=== PATIENT | male | born 1960 | race Two or more races ===

== ENCOUNTER 2023-08-18 04:33 | Inpatient (IN) | payer OTHER, MEDICAID ==
[~2023-08-18] VITALS: Ht 165.1 cm; Wt 65.7 kg
[2023-08-18] VITALS (43 sets, daily range): BP systolic 60–136; BP diastolic 21–66; PULSE 81–145; RESP 12–34; TEMP 97.4–100.4; O2SAT 85–100
[2023-08-18] MEDS ORDERED: DEXTROSE 10% 250 ML IV ONE (04:41)
[2023-08-18] MEDS ORDERED: ROCURONIUM 10MG/ML 10ML VIAL IV ONE (05:00)
[2023-08-18] MEDS ORDERED: ETOMIDATE (2MG/ML) 20ML VIAL IV ONE (05:00)
[2023-08-18] MEDS ORDERED: MIDAZOLAM DRIP 50 mg/50mL 50 ML IV ONE (05:10)
[2023-08-18] MEDS ORDERED: DEXTROSE 10% 1,000 ML IV ONE ×2 (05:13→05:45)
[2023-08-18] MEDS ORDERED: NOREPINEPHRINE 8 MG/250ML KIT 250 ML IV ONE ×2 (05:18→10:04)
[2023-08-18] MEDS: MIDAZOLAM DRIP 50 mg/50mL 50 ML IV SCH (05:20)
[2023-08-18] MEDS: NOREPINEPHRINE 8 MG/250ML KIT 250 ML IV SCH ×2 (05:55→06:00)
[2023-08-18] MEDS ORDERED: DOBUTamine 1000MCG/ML 250 ML IV ONE ×2 (05:59→10:03)
[2023-08-18] MEDS ORDERED: VASOPRESSIN 20 UNIT/ML ONE (05:59)
[2023-08-18] MEDS ORDERED: VASOPRESSIN 20 UNITS in SODIUM CHL 0.9% 99 ML IV SCH (06:00)
[2023-08-18] MEDS: VASOPRESSIN 20 UNITS in SODIUM CHL 0.9% 99 ML IV SCH ×2 (06:12→14:39)
[2023-08-18 06:29] LABS: Basophils # (auto) 0.1 10 ^3/uL (0-0.2); Basophils % (auto) 1.1 % (0.0-2.0); Eosinophils # (auto) 0.1 10 ^3/uL (0-0.8); Lymphocytes # (auto) 1.2 10 ^3/uL (0.4-5.4); Nucleated Red Blood Cells % 0.1 %
[2023-08-18] MEDS ORDERED: OCTREOTIDE ACETATE 100 MCG in SODIUM CHL 0.9% 50 ML IV ONE (06:30)
[2023-08-18] MEDS ORDERED: DOBUTamine 1000MCG/ML 250 ML IV SCH (06:30)
[2023-08-18] MEDS ORDERED: VANCOMYCIN 1GM/200ML 250 ML IV ONE (06:30)
[2023-08-18] MEDS ORDERED: PIPERACILLIN-TAZOB 3.375GM 100 ML IV ONE (06:30)
[2023-08-18] MEDS ORDERED: PANTOPRAZOLE 80 MG in SODIUM CHL 0.9% 100 ML IV ONE (06:30)
[2023-08-18] MEDS ORDERED: PANTOPRAZOLE 40mg/50ML NS AE 50 ML IV ONE (06:30)
[2023-08-18 06:32] LABS: Eosinophils % (auto) 0.9 % (0.0-7.0); Hematocrit 20.2 % (41.0-53.0); Mean Corpuscular Hemoglobin 28.3 pg (28.0-32.0); Mean Corpuscular Hgb Conc. 31.6 g/dL (32.0-36.0); Mean Corpuscular Volume 89.6 fL (80.0-100.0); Monocytes # (auto) 0.8 10 ^3/uL (0-1.3); Monocytes % (auto) 8.9 % (0.0-12.0); Neutrophils # (auto) 6.7 10 ^3/uL (1.6-8.6); Neutrophils % (auto) 75.1 % (37.0-80.0); Red Blood Cells 2.25 10^6/uL (4.5-5.90); White Blood Cell 8.9 10^3/uL (4.4-10.8)
[2023-08-18 06:43] LABS: Alanine Aminotransferase 17 U/L (7-40); Albumin 3.2 g/dL (3.2-4.8); Alkaline Phosphatase 224 U/L (46-116); Anion Gap 12 (5-15); Aspartate Aminotransferase 37 U/L (13-40); BUN/Creatinine Ratio 8.3 (10.0-20.0); Blood Urea Nitrogen 46 mg/dL (9-23); Calcium 7.5 mg/dL (8.5-10.1); Carbon Dioxide 23 mmol/L (20-30); Chloride 100 mmol/L (98-107); Glucose 88 mg/dL (74-106); Potassium 4.7 mmol/L (3.5-5.1); Sodium 135 mmol/L (136-145)
[2023-08-18 06:44] LABS: Total Protein 5.7 g/dL (5.7-8.2)
[2023-08-18] MEDS ORDERED: PHENYLEPHRINE IV 250 ML IV ONE (06:54)
[2023-08-18] MEDS: fentaNYL Drip 2500mCg/250mlNS 250 ML IV SCH (07:00)
[2023-08-18] MEDS ORDERED: PHENYLEPHRINE IV 250 ML IV SCH (07:00)
[2023-08-18 07:03] LABS: Blood Alcohol < 3.0 mg/dL (<10)
[2023-08-18 07:04] LABS: Red Cell Distribution Width 25.3 % (11.8-14.3)
[2023-08-18 07:06] LABS: Hemoglobin 6.4 g/dL (13.5-17.5)
[2023-08-18 07:16] LABS: INR 1.31 (0.9-1.15); Prothrombin Time 13.5 sec (9.3-11.8)
[2023-08-18 07:20] LABS: Lipase 22 U/L (12-53); Magnesium 2.1 mg/dL (1.6-2.6)
[2023-08-18 08:01] LABS: Lactic Acid w/Reflex 3.1 mmol/L (0.4-2.0)
[2023-08-18 08:11] LABS: Erythrocyte Sedimentation Rate 62 mm/hr (0-20)
[2023-08-18] MEDS ORDERED: ACETAMINOPHEN 325 MG TAB PO PRN (08:45)
[2023-08-18] MEDS ORDERED: VANCOMYCIN PER PHARMACY 0 MG IV SCH (08:45)
[2023-08-18] MEDS ORDERED: SODIUM CHLORIDE 0.9% 1,000 ML IV SCH (08:45)
[2023-08-18 09:29] LABS: COVID19 ANTIGEN SOFIA FIA NEGATIVE (NEGATIVE)
[2023-08-18] MEDS: DOPamine 3200MCG/ML 250 ML IV SCH ×2 (10:50→17:00)
[2023-08-18 10:59] LABS: Amphetamine Screen, Urine Neg (NEGATIVE)
[2023-08-18 11:00] LABS: Barbiturate Scree,Urine Neg (NEGATIVE); Benzodiazephine Screen, Urine Neg (NEGATIVE); Cocaine Screen, Urine Neg (NEGATIVE); Opiate Scree,Urine Neg (NEGATIVE)
[2023-08-18 11:01] LABS: Cannabinoid Screen, Urine Neg (NEGATIVE); Phencyclidine Screen, Urine Neg (NEGATIVE)
[2023-08-18 11:11] LABS: Anisocytosis Moderate; Platelet Estimate Decreased
[2023-08-18 11:12] LABS: Ovalocytes FEW
[2023-08-18 11:14] LABS: Urine Bacteria FEW /hpf (None Seen); Urine Blood 2+ /uL (Negative); Urine Clarity HAZY (Clear); Urine Color Yellow (Yellow); Urine Hyaline Cast FEW /lpf (0 - 2); Urine Mucus FEW (None Seen); Urine Protein, UAD 2+ (Negative); Urine Specific Gravity 1.008 (1.001-1.035); Urine Urobilinogen Normal (Negative); Urine WBC 33 /hpf (0 - 3); Urine pH 8.5 (5.0-8.0)
[2023-08-18] MEDS: PHENYLEPHRINE INJ 80 MG in SODIUM CHL 0.9% 242 ML IV SCH ×2 (11:43→18:33)
[2023-08-18] MEDS: DOBUTamine HCL 500 MG in D5W 5% 210 ML IV SCH (11:55)
[2023-08-18] MEDS ORDERED: PHYTONADIONE (VIT K)10 MG/ML 1ML VIAL SUBCUT ONE (12:00)
[2023-08-18] MEDS ORDERED: DOPamine 1600MCG/ML D5W 250 ML IV ONE (12:11)
[2023-08-18] MEDS: EPINEPHrine HCL INJECTION 16 MG in D5W 5% 234 ML IV SCH (12:30)
[2023-08-18] MEDS: NOREPINEPHRINE BITARTRATE 32 MG in SODIUM CHL 0.9% 218 ML IV SCH (13:00)
[2023-08-18] MEDS ORDERED: AMIODARONE 450mg/250ml AE 250 ML IV ONE ×2 (13:23→13:25)
[2023-08-18] MEDS ORDERED: AMIODARONE BOLUS KIT 100 ML IV ONE ×2 (13:23→13:30)
[2023-08-18] MEDS ORDERED: AMIODARONE 450mg/250ml AE 250 ML IV SCH (13:45)
[2023-08-18] MEDS: OCTREOTIDE ACETATE 500 MCG in SODIUM CHL 0.9% 99 ML IV SCH (14:40)
[2023-08-18 14:42] LABS: Base Excess -3.7 mmol/L (-2.0-2.0)
[2023-08-18] MEDS: D5W/SOD CHL 0.45% 1,000 ML IV SCH (14:55)
[2023-08-18 17:53] LABS: Basophils # (auto) 0.1 10 ^3/uL (0-0.2); Eosinophils # (auto) 0 10 ^3/uL (0-0.8); Hemoglobin 7.6 g/dL (13.5-17.5); Lymphocytes # (auto) 0.3 10 ^3/uL (0.4-5.4); Mean Corpuscular Volume 86.8 fL (80.0-100.0); Neutrophils # (auto) 13.6 10 ^3/uL (1.6-8.6); White Blood Cell 14.6 10^3/uL (4.4-10.8)
[2023-08-18 17:55] LABS: Basophils % (auto) 0.7 % (0.0-2.0); Eosinophils % (auto) 0.1 % (0.0-7.0); Hematocrit 23.6 % (41.0-53.0); Lymphocytes % (auto) 2.3 % (10.0-50.0); Mean Corpuscular Hemoglobin 27.8 pg (28.0-32.0); Mean Corpuscular Hgb Conc. 32.1 g/dL (32.0-36.0); Monocytes # (auto) 0.6 10 ^3/uL (0-1.3); Neutrophils % (auto) 92.9 % (37.0-80.0); Red Blood Cells 2.72 10^6/uL (4.5-5.90)
[2023-08-18 18:03] LABS: Red Cell Distribution Width 20.8 % (11.8-14.3)
[2023-08-18] MEDS: CEFEPIME 1GM/ 50ML 50 ML IV SCH (18:22)
[2023-08-18] MEDS: AMIODARONE 450mg/250ml AE 250 ML IV SCH (20:13)
[2023-08-18 23:46] LABS: Base Excess -6.2 mmol/L (-2.0-2.0)
[2023-08-19] VITALS (117 sets, daily range): BP systolic 92–166; BP diastolic 5–108; PULSE 101–111; RESP 16–27; TEMP 97.2–99.3; O2SAT 56–100
[2023-08-19 01:22] LABS: Anion Gap 10 (5-15); Calcium 7.2 mg/dL (8.7-10.4); Carbon Dioxide 22 mmol/L (20-30); Chloride 94 mmol/L (98-107)
[2023-08-19 01:26] LABS: Glucose 62 mg/dL (74-106)
[2023-08-19] MEDS ORDERED: PANTOPRAZOLE 40mg/50ML NS AE 50 ML IV ONE (01:29)
[2023-08-19 01:34] LABS: Blood Urea Nitrogen 36 mg/dL (9-23); Sodium 126 mmol/L (136-145)
[2023-08-19] MEDS: D5W/SOD CHL 0.45% 1,000 ML IV SCH ×2 (01:35→06:33)
[2023-08-19] MEDS: PANTOPRAZOLE 40mg/50ML NS AE 50 ML IV SCH ×5 (01:38→21:15)
[2023-08-19] MEDS: VASOPRESSIN 20 UNITS in SODIUM CHL 0.9% 99 ML IV SCH ×2 (01:48→12:04)
[2023-08-19] MEDS: DOPamine 3200MCG/ML 250 ML IV SCH (01:48)
[2023-08-19] MEDS: PHENYLEPHRINE INJ 80 MG in SODIUM CHL 0.9% 242 ML IV SCH ×3 (01:49→16:11)
[2023-08-19 01:50] LABS: Hemoglobin 7.6 g/dL (13.5-17.5)
[2023-08-19 01:53] LABS: Basophils # (auto) 0.2 10 ^3/uL (0-0.2); Basophils % (auto) 1.1 % (0.0-2.0); Eosinophils # (auto) 0 10 ^3/uL (0-0.8); Eosinophils % (auto) 0.2 % (0.0-7.0); Hematocrit 23.6 % (41.0-53.0); Lymphocytes # (auto) 0.9 10 ^3/uL (0.4-5.4); Lymphocytes % (auto) 5.5 % (10.0-50.0); Mean Corpuscular Hemoglobin 28.4 pg (28.0-32.0); Mean Corpuscular Hgb Conc. 32.1 g/dL (32.0-36.0); Mean Corpuscular Volume 88.5 fL (80.0-100.0); Monocytes # (auto) 0.6 10 ^3/uL (0-1.3); Monocytes % (auto) 3.8 % (0.0-12.0); Neutrophils % (auto) 89.4 % (37.0-80.0); Red Blood Cells 2.67 10^6/uL (4.5-5.90); White Blood Cell 16.8 10^3/uL (4.4-10.8)
[2023-08-19 01:57] LABS: Red Cell Distribution Width 20.6 % (11.8-14.3)
[2023-08-19] MEDS: OCTREOTIDE ACETATE 500 MCG in SODIUM CHL 0.9% 99 ML IV SCH ×4 (02:02→22:30)
[2023-08-19 04:36] LABS: Basophils # (auto) 0.2 10 ^3/uL (0-0.2); Basophils % (auto) 1.3 % (0.0-2.0); Eosinophils # (auto) 0.1 10 ^3/uL (0-0.8); Eosinophils % (auto) 0.5 % (0.0-7.0); Hematocrit 23.7 % (41.0-53.0); Hemoglobin 7.6 g/dL (13.5-17.5); Lymphocytes # (auto) 0.5 10 ^3/uL (0.4-5.4); Lymphocytes % (auto) 3.2 % (10.0-50.0); Mean Corpuscular Hemoglobin 28.3 pg (28.0-32.0); Mean Corpuscular Volume 88.3 fL (80.0-100.0); Monocytes # (auto) 0.5 10 ^3/uL (0-1.3); Monocytes % (auto) 3.1 % (0.0-12.0); Neutrophils # (auto) 14.4 10 ^3/uL (1.6-8.6); Neutrophils % (auto) 91.9 % (37.0-80.0); Red Blood Cells 2.68 10^6/uL (4.5-5.90); White Blood Cell 15.6 10^3/uL (4.4-10.8)
[2023-08-19 04:36] LABS: BUN/Creatinine Ratio 6.1 (10.0-20.0)
[2023-08-19 04:38] LABS: Red Cell Distribution Width 20.3 % (11.8-14.3)
[2023-08-19 04:48] LABS: INR 1.3 (0.9-1.15); Partial Thromboplastin Time 39.3 SEC (24.5-34.5); Prothrombin Time 13.4 sec (9.3-11.8)
[2023-08-19 05:08] LABS: Alanine Aminotransferase 35 U/L (7-40); Albumin 3.1 g/dL (3.2-4.8); Alkaline Phosphatase 158 U/L (46-116); Anion Gap 8 (5-15); Aspartate Aminotransferase 162 U/L (13-40); BUN/Creatinine Ratio 8.3 (10.0-20.0); Calcium 7.3 mg/dL (8.5-10.1); Carbon Dioxide 25 mmol/L (20-30); Chloride 95 mmol/L (98-107); Potassium 5.1 mmol/L (3.5-5.1); Sodium 128 mmol/L (136-145)
[2023-08-19 05:09] LABS: Bilirubin, Direct 0.8 mg/dL (<0.3)
[2023-08-19 05:10] LABS: Bilirubin, Total 1.1 mg/dL (0.2-1.0); Total Protein 5.4 g/dL (5.7-8.2)
[2023-08-19 05:32] LABS: Blood Urea Nitrogen 48 mg/dL (9-23)
[2023-08-19 05:33] LABS: Glucose 34 mg/dL (74-106)
[2023-08-19] MEDS ORDERED: DEXTROSE 10% 250 ML IV ONE (05:39)
[2023-08-19] MEDS: MIDAZOLAM DRIP 50 mg/50mL 50 ML IV SCH ×2 (05:45→22:30)
[2023-08-19 05:49] LABS: Magnesium 2.3 mg/dL (1.6-2.6)
[2023-08-19] MEDS: DEXTROSE 10% 250 ML Bag IV PRN ×3 (06:00→08:46)
[2023-08-19] MEDS: DOBUTamine HCL 500 MG in D5W 5% 210 ML IV SCH (06:20)
[2023-08-19] MEDS: NOREPINEPHRINE BITARTRATE 32 MG in SODIUM CHL 0.9% 218 ML IV SCH (06:52)
[2023-08-19 07:20] LABS: Base Excess -4.1 mmol/L (-2.0-2.0)
[2023-08-19] MEDS: fentaNYL Drip 2500mCg/250mlNS 250 ML IV SCH (07:45)
[2023-08-19] MEDS ORDERED: SODIUM BICARBONATE 8.4% INJ 50ML SYRINGE ONE (08:35)
[2023-08-19] MEDS ORDERED: SODIUM BICARBONATE 8.4 % INJ 50ML VIAL IV ONE (08:45)
[2023-08-19] MEDS ORDERED: DEXTROSE 10% 1,000 ML IV ONE (08:49)
[2023-08-19] MEDS: AMIODARONE 450mg/250ml AE 250 ML IV SCH (09:50)
[2023-08-19] MEDS: CEFEPIME 1GM/ 50ML 50 ML IV SCH (09:53)
[2023-08-19 10:31] LABS: Base Excess -3.2 mmol/L (-2.0-2.0)
[2023-08-19] MEDS: DEXTROSE (50%) 50ML SYRG IV SCH ×8 (11:00→18:00)
[2023-08-19] MEDS ORDERED: SODIUM CHL 0.9% 1000 ML BAG XX ONE (11:30)
[2023-08-19 12:10] LABS: Basophils # (auto) 0.1 10 ^3/uL (0-0.2); Basophils % (auto) 0.9 % (0.0-2.0); Eosinophils # (auto) 0.2 10 ^3/uL (0-0.8); Eosinophils % (auto) 1.2 % (0.0-7.0); Mean Corpuscular Volume 85.2 fL (80.0-100.0); White Blood Cell 13.6 10^3/uL (4.4-10.8)
[2023-08-19 12:12] LABS: Lymphocytes # (auto) 0.8 10 ^3/uL (0.4-5.4); Mean Corpuscular Hgb Conc. 32.9 g/dL (32.0-36.0); Monocytes # (auto) 0.6 10 ^3/uL (0-1.3); Monocytes % (auto) 4.3 % (0.0-12.0); Neutrophils % (auto) 87.6 % (37.0-80.0); Red Blood Cells 2.46 10^6/uL (4.5-5.90)
[2023-08-19 12:14] LABS: Red Cell Distribution Width 20.7 % (11.8-14.3)
[2023-08-19 12:15] LABS: Hemoglobin 6.9 g/dL (13.5-17.5)
[2023-08-19] MEDS: EPINEPHrine HCL INJECTION 16 MG in D5W 5% 234 ML IV SCH (12:15)
[2023-08-19] MEDS: ALBUMIN 25% 100 ML IV SCH ×3 (13:25→13:48)
[2023-08-19] MEDS ORDERED: VANCOMYCIN 1GM/200ML 250 ML IV ONE (16:00)
[2023-08-19] MEDS: DEXTROSE 10% 1,000 ML IV SCH ×2 (16:45→17:00)
[2023-08-19 18:19] LABS: Basophils # (auto) 0.1 10 ^3/uL (0-0.2); Basophils % (auto) 0.8 % (0.0-2.0); Eosinophils # (auto) 0.1 10 ^3/uL (0-0.8); Hematocrit 26.1 % (41.0-53.0); Hemoglobin 8.6 g/dL (13.5-17.5); Lymphocytes # (auto) 0.4 10 ^3/uL (0.4-5.4); Lymphocytes % (auto) 2.9 % (10.0-50.0); Mean Corpuscular Hemoglobin 28.9 pg (28.0-32.0); Mean Corpuscular Volume 87.5 fL (80.0-100.0); Monocytes # (auto) 0.6 10 ^3/uL (0-1.3); Monocytes % (auto) 4.2 % (0.0-12.0); Neutrophils # (auto) 12.1 10 ^3/uL (1.6-8.6); Neutrophils % (auto) 91.1 % (37.0-80.0); Red Blood Cells 2.98 10^6/uL (4.5-5.90); Red Cell Distribution Width 19.3 % (11.8-14.3); White Blood Cell 13.3 10^3/uL (4.4-10.8)
[2023-08-19] MEDS ORDERED: EPOETIN ALFA-EPBX 10,000 UNIT/1ML VIAL SC ONE (21:00)
[2023-08-19 23:15] LABS: Base Excess -0.9 mmol/L (-2.0-2.0)
[2023-08-20] VITALS (104 sets, daily range): BP systolic 84–150; BP diastolic 37–78; PULSE 79–103; RESP 18–29; TEMP 98–98.6; O2SAT 88–100
[2023-08-20] MEDS: DEXTROSE 10% 250 ML Bag IV PRN ×3 (01:14→14:30)
[2023-08-20 01:41] LABS: Basophils # (auto) 0.1 10 ^3/uL (0-0.2); Lymphocytes # (auto) 0.4 10 ^3/uL (0.4-5.4); Lymphocytes % (auto) 3.7 % (10.0-50.0); Monocytes # (auto) 0.4 10 ^3/uL (0-1.3)
[2023-08-20 01:43] LABS: Basophils % (auto) 1.2 % (0.0-2.0); Eosinophils # (auto) 0.3 10 ^3/uL (0-0.8); Eosinophils % (auto) 2.2 % (0.0-7.0); Hematocrit 21.9 % (41.0-53.0); Hemoglobin 7.3 g/dL (13.5-17.5); Mean Corpuscular Hemoglobin 28.7 pg (28.0-32.0); Mean Corpuscular Hgb Conc. 33.1 g/dL (32.0-36.0); Mean Corpuscular Volume 86.8 fL (80.0-100.0); Monocytes % (auto) 3.5 % (0.0-12.0); Neutrophils # (auto) 10.4 10 ^3/uL (1.6-8.6); Neutrophils % (auto) 89.4 % (37.0-80.0); Red Blood Cells 2.52 10^6/uL (4.5-5.90); Red Cell Distribution Width 19.4 % (11.8-14.3); White Blood Cell 11.6 10^3/uL (4.4-10.8)
[2023-08-20] MEDS: AMIODARONE 450mg/250ml AE 250 ML IV SCH ×2 (01:45→13:45)
[2023-08-20 01:49] LABS: Chloride 96 mmol/L (98-107); Potassium 3.6 mmol/L (3.5-5.1); Sodium 129 mmol/L (136-145)
[2023-08-20 01:50] LABS: Anion Gap 8 (5-15); Calcium 6.2 mg/dL (8.7-10.4); Carbon Dioxide 25 mmol/L (20-30)
[2023-08-20 01:55] LABS: BUN/Creatinine Ratio 7.5 (10.0-20.0)
[2023-08-20] MEDS: PANTOPRAZOLE 40mg/50ML NS AE 50 ML IV SCH ×5 (02:12→21:14)
[2023-08-20 02:15] LABS: Blood Urea Nitrogen 32 mg/dL (9-23); Glucose 152 mg/dL (74-106)
[2023-08-20] MEDS: VASOPRESSIN 20 UNITS in SODIUM CHL 0.9% 99 ML IV SCH ×3 (02:58→21:17)
[2023-08-20] MEDS: DOBUTamine HCL 500 MG in D5W 5% 210 ML IV SCH (03:10)
[2023-08-20] MEDS: fentaNYL Drip 2500mCg/250mlNS 250 ML IV SCH (07:45)
[2023-08-20 07:52] LABS: Base Excess -1.8 mmol/L (-2.0-2.0)
[2023-08-20] MEDS: NOREPINEPHRINE BITARTRATE 32 MG in SODIUM CHL 0.9% 218 ML IV SCH (09:30)
[2023-08-20] MEDS: OCTREOTIDE ACETATE 500 MCG in SODIUM CHL 0.9% 99 ML IV SCH ×3 (10:19→20:18)
[2023-08-20] MEDS: CEFEPIME 1GM/ 50ML 50 ML IV SCH (10:20)
[2023-08-20] MEDS: MIDAZOLAM DRIP 50 mg/50mL 50 ML IV SCH ×2 (10:22→23:15)
[2023-08-20] MEDS: EPINEPHrine HCL INJECTION 16 MG in D5W 5% 234 ML IV SCH (10:23)
[2023-08-20 11:23] LABS: Platelet Estimate Decreased
[2023-08-20] MEDS ORDERED: PHYTONADIONE (VIT K)10 MG/ML 1ML VIAL SUBCUT ONE (11:45)
[2023-08-20 12:48] LABS: INR 1.44 (0.9-1.15); Partial Thromboplastin Time 55.4 SEC (24.5-34.5); Prothrombin Time 14.8 sec (9.3-11.8)
[2023-08-20] MEDS ORDERED: TPN PER PHARMACY 0 ML IV SCH (14:30)
[2023-08-20 15:09] LABS: Magnesium 1.9 mg/dL (1.6-2.6)
[2023-08-20 15:11] LABS: Phosphorus 5.5 mg/dL (2.4-5.1)
[2023-08-20 15:52] LABS: Eosinophils # (auto) 0.5 10 ^3/uL (0-0.8); Lymphocytes # (auto) 0.5 10 ^3/uL (0.4-5.4); Monocytes # (auto) 0.4 10 ^3/uL (0-1.3)
[2023-08-20 15:54] LABS: Basophils # (auto) 0.1 10 ^3/uL (0-0.2); Basophils % (auto) 0.5 % (0.0-2.0); Eosinophils % (auto) 4.1 % (0.0-7.0); Hematocrit 23.8 % (41.0-53.0); Hemoglobin 7.7 g/dL (13.5-17.5); Lymphocytes % (auto) 4.8 % (10.0-50.0); Mean Corpuscular Hemoglobin 28.1 pg (28.0-32.0); Mean Corpuscular Hgb Conc. 32.5 g/dL (32.0-36.0); Mean Corpuscular Volume 86.7 fL (80.0-100.0); Monocytes % (auto) 3.5 % (0.0-12.0); Neutrophils % (auto) 87.1 % (37.0-80.0); Red Blood Cells 2.74 10^6/uL (4.5-5.90); Red Cell Distribution Width 19.9 % (11.8-14.3); White Blood Cell 11.4 10^3/uL (4.4-10.8)
[2023-08-20] MEDS ORDERED: EPINEPHrine HCL 1 MG/10 ML SYRG IV ONE (17:05)
[2023-08-20] MEDS ORDERED: CALCIUM CHLOR(10%) 100MG/ML 10ML SYRINGE IV ONE (17:05)
[2023-08-20] MEDS ORDERED: DOPamine 1600mCg/ml 400MG/250ml NSorD5 KIT/BAG IV ONE (17:06)
[2023-08-20] MEDS ORDERED: EPINEPHRINE HCL 30 MG/30 ML IM ONE (17:06)
[2023-08-20 18:17] LABS: Basophils # (auto) 0.1 10 ^3/uL (0-0.2); Basophils % (auto) 0.7 % (0.0-2.0); Eosinophils # (auto) 0.5 10 ^3/uL (0-0.8); Eosinophils % (auto) 4.5 % (0.0-7.0); Hemoglobin 7.5 g/dL (13.5-17.5); Lymphocytes # (auto) 0.6 10 ^3/uL (0.4-5.4); Lymphocytes % (auto) 5.2 % (10.0-50.0); Mean Corpuscular Hemoglobin 28.1 pg (28.0-32.0); Mean Corpuscular Hgb Conc. 32.8 g/dL (32.0-36.0); Mean Corpuscular Volume 85.8 fL (80.0-100.0); Monocytes # (auto) 0.4 10 ^3/uL (0-1.3); Monocytes % (auto) 3.3 % (0.0-12.0); Neutrophils # (auto) 9.6 10 ^3/uL (1.6-8.6); Neutrophils % (auto) 86.3 % (37.0-80.0); Red Blood Cells 2.67 10^6/uL (4.5-5.90); Red Cell Distribution Width 19.3 % (11.8-14.3); White Blood Cell 11.2 10^3/uL (4.4-10.8)
[2023-08-20] MEDS ORDERED: AMINO ACID INFUSION IN D10W 1,000 ML IV NR (20:00)
[2023-08-20] MEDS: DEXTROSE 10% 1,000 ML IV SCH (20:46)
[2023-08-20] MEDS: ACCU-CHEK COMFORT CURVE STRIP VI SCH ×4 (20:48→23:13)
[2023-08-21] VITALS (111 sets, daily range): BP systolic 65–142; BP diastolic 14–71; PULSE 61–92; RESP 16–26; TEMP 97.3–98.6; O2SAT 85–100
[2023-08-21] MEDS: ACCU-CHEK COMFORT CURVE STRIP VI SCH ×19 (00:27→23:15)
[2023-08-21] MEDS: AMIODARONE 450mg/250ml AE 250 ML IV SCH ×2 (00:44→14:18)
[2023-08-21] MEDS: PANTOPRAZOLE 40mg/50ML NS AE 50 ML IV SCH ×5 (01:32→22:58)
[2023-08-21] MEDS: OCTREOTIDE ACETATE 500 MCG in SODIUM CHL 0.9% 99 ML IV SCH (04:32)
[2023-08-21 04:48] LABS: Basophils # (auto) 0.1 10 ^3/uL (0-0.2); Eosinophils # (auto) 0.5 10 ^3/uL (0-0.8); Red Cell Distribution Width 19.7 % (11.8-14.3); White Blood Cell 11.8 10^3/uL (4.4-10.8)
[2023-08-21 04:52] LABS: Alanine Aminotransferase 43 U/L (7-40); Albumin 2.8 g/dL (3.2-4.8); Alkaline Phosphatase 139 U/L (46-116); Aspartate Aminotransferase 174 U/L (13-40); BUN/Creatinine Ratio 7.3 (10.0-20.0); Basophils % (auto) 0.7 % (0.0-2.0); Blood Urea Nitrogen 39 mg/dL (9-23); Chloride 90 mmol/L (98-107); Eosinophils % (auto) 3.8 % (0.0-7.0); Glucose 80 mg/dL (74-106); Hematocrit 23.2 % (41.0-53.0); Hemoglobin 7.8 g/dL (13.5-17.5); Lymphocytes # (auto) 0.6 10 ^3/uL (0.4-5.4); Lymphocytes % (auto) 4.7 % (10.0-50.0); Mean Corpuscular Hgb Conc. 33.7 g/dL (32.0-36.0); Mean Corpuscular Volume 86.2 fL (80.0-100.0); Monocytes # (auto) 0.3 10 ^3/uL (0-1.3); Monocytes % (auto) 2.8 % (0.0-12.0); Neutrophils # (auto) 10.4 10 ^3/uL (1.6-8.6); Potassium 4.3 mmol/L (3.5-5.1); Triglycerides 64 mg/dL (< 150)
[2023-08-21 04:53] LABS: Bilirubin, Total 2.4 mg/dL (0.2-1.0); Phosphorus 5.8 mg/dL (2.4-5.1); Total Protein 4.7 g/dL (5.7-8.2)
[2023-08-21 05:24] LABS: Sodium 121 mmol/L (136-145)
[2023-08-21] MEDS: VASOPRESSIN 20 UNITS in SODIUM CHL 0.9% 99 ML IV SCH ×3 (05:47→19:45)
[2023-08-21] MEDS: InsuLIN REG 1unit/0.01ml Soln (100units/ml) SC SCH ×5 (06:00→23:15)
[2023-08-21 06:11] LABS: Anion Gap 9 (5-15); Carbon Dioxide 22 mmol/L (20-30)
[2023-08-21 06:22] LABS: Magnesium 1.9 mg/dL (1.6-2.6)
[2023-08-21 07:32] LABS: Base Excess -3.1 mmol/L (-2.0-2.0)
[2023-08-21] MEDS: DEXTROSE 10% 1,000 ML IV SCH ×3 (07:45→23:01)
[2023-08-21] MEDS: NOREPINEPHRINE BITARTRATE 32 MG in SODIUM CHL 0.9% 218 ML IV SCH (07:53)
[2023-08-21] MEDS ORDERED: PANTOPRAZOLE 40 MG/10 ML VIAL INJ IV ONE ×2 (08:20→22:55)
[2023-08-21] MEDS: fentaNYL Drip 2500mCg/250mlNS 250 ML IV SCH (08:32)
[2023-08-21] MEDS: PHENYLEPHRINE INJ 80 MG in SODIUM CHL 0.9% 242 ML IV SCH (09:30)
[2023-08-21] MEDS: CEFEPIME 1GM/ 50ML 50 ML IV SCH (10:39)
[2023-08-21] MEDS ORDERED: CALCIUM GLUC 1,000mg/50ml-NS 50 ML IV ONE (10:45)
[2023-08-21] MEDS: MIDAZOLAM DRIP 50 mg/50mL 50 ML IV SCH (11:59)
[2023-08-21] MEDS: DOPamine 3200MCG/ML 250 ML IV SCH ×2 (12:15→19:29)
[2023-08-21] MEDS: EPINEPHrine HCL INJECTION 16 MG in D5W 5% 234 ML IV SCH (12:15)
[2023-08-21] MEDS ORDERED: SODIUM CHL 3% 500 ML IV ONE (14:45)
[2023-08-21] MEDS: MAGNESIUM SULFATE 1GM/100ML 100 ML IV SCH ×2 (18:08→19:02)
[2023-08-21] MEDS ORDERED: TPN PER PHARMACY IV NR ×8 (20:00)
[2023-08-21] MEDS: DOBUTamine HCL 500 MG in D5W 5% 210 ML IV SCH ×3 (20:50)
[2023-08-22] VITALS (112 sets, daily range): BP systolic 78–148; BP diastolic 13–62; PULSE 63–84; RESP 20–30; TEMP 98–98.9; O2SAT 92–100
[2023-08-22] MEDS: MIDAZOLAM DRIP 50 mg/50mL 50 ML IV SCH ×3 (03:22→19:43)
[2023-08-22] MEDS: PHENYLEPHRINE INJ 80 MG in SODIUM CHL 0.9% 242 ML IV SCH ×2 (04:21→18:42)
[2023-08-22] MEDS: PANTOPRAZOLE 40mg/50ML NS AE 50 ML IV SCH ×4 (04:53→19:50)
[2023-08-22] MEDS: VASOPRESSIN 20 UNITS in SODIUM CHL 0.9% 99 ML IV SCH ×2 (04:54→17:07)
[2023-08-22 04:55] LABS: Alanine Aminotransferase 28 U/L (7-40); Albumin 2.5 g/dL (3.2-4.8); Alkaline Phosphatase 155 U/L (46-116); Anion Gap 10 (5-15); Aspartate Aminotransferase 122 U/L (13-40); Calcium 6.6 mg/dL (8.7-10.4); Carbon Dioxide 20 mmol/L (20-30); Chloride 90 mmol/L (98-107); Glucose 127 mg/dL (74-106); Potassium 4.1 mmol/L (3.5-5.1); Sodium 120 mmol/L (136-145)
[2023-08-22 04:56] LABS: Total Protein 4.5 g/dL (5.7-8.2)
[2023-08-22 04:57] LABS: BUN/Creatinine Ratio 7.8 (10.0-20.0); Blood Urea Nitrogen 45 mg/dL (9-23); Magnesium 1.8 mg/dL (1.6-2.6)
[2023-08-22 04:59] LABS: Bilirubin, Total 3.1 mg/dL (0.2-1.0); Phosphorus 5.7 mg/dL (2.4-5.1)
[2023-08-22] MEDS: InsuLIN REG 1unit/0.01ml Soln (100units/ml) SC SCH ×4 (05:10→23:58)
[2023-08-22] MEDS: ACCU-CHEK COMFORT CURVE STRIP VI SCH ×4 (05:10→23:58)
[2023-08-22] MEDS: NOREPINEPHRINE BITARTRATE 32 MG in SODIUM CHL 0.9% 218 ML IV SCH (08:12)
[2023-08-22] MEDS: AMIODARONE 450mg/250ml AE 250 ML IV SCH ×2 (08:14→19:49)
[2023-08-22] MEDS: fentaNYL Drip 2500mCg/250mlNS 250 ML IV SCH (08:19)
[2023-08-22] MEDS: CEFEPIME 1GM/ 50ML 50 ML IV SCH (10:32)
[2023-08-22] MEDS ORDERED: CALCIUM GLUC 1,000mg/50ml-NS 50 ML IV ONE (12:00)
[2023-08-22] MEDS: EPINEPHrine HCL INJECTION 16 MG in D5W 5% 234 ML IV SCH (12:15)
[2023-08-22 12:36] LABS: Base Excess -8.4 mmol/L (-2.0-2.0)
[2023-08-22] MEDS ORDERED: SODIUM CHL 0.9% 1000 ML BAG XX ONE (13:45)
[2023-08-22] MEDS: DOBUTamine HCL 500 MG in D5W 5% 210 ML IV SCH (17:40)
[2023-08-22] MEDS ORDERED: TPN PER PHARMACY IV NR ×8 (20:00)
[2023-08-23] VITALS (107 sets, daily range): BP systolic 91–148; BP diastolic 13–69; PULSE 63–93; RESP 13–31; TEMP 96.6–99.1; O2SAT 89–100
[2023-08-23] MEDS: fentaNYL Drip 2500mCg/250mlNS 250 ML IV SCH
[2023-08-23] MEDS: NOREPINEPHRINE BITARTRATE 32 MG in SODIUM CHL 0.9% 218 ML IV SCH ×2 (00:02→18:40)
[2023-08-23] MEDS: PANTOPRAZOLE 40mg/50ML NS AE 50 ML IV SCH ×6 (00:04→21:55)
[2023-08-23] MEDS: MIDAZOLAM DRIP 50 mg/50mL 50 ML IV SCH ×2 (03:22→14:40)
[2023-08-23] MEDS: VASOPRESSIN 20 UNITS in SODIUM CHL 0.9% 99 ML IV SCH (03:22)
[2023-08-23] MEDS: DOPamine 3200MCG/ML 250 ML IV SCH (03:24)
[2023-08-23 04:00] LABS: Eosinophils # (auto) 0.5 10 ^3/uL (0-0.8); Hemoglobin 7.5 g/dL (13.5-17.5); Mean Corpuscular Hemoglobin 29.7 pg (28.0-32.0); Monocytes # (auto) 0.5 10 ^3/uL (0-1.3); Red Blood Cells 2.52 10^6/uL (4.5-5.90)
[2023-08-23 04:02] LABS: Basophils # (auto) 0.1 10 ^3/uL (0-0.2); Basophils % (auto) 0.6 % (0.0-2.0); Eosinophils % (auto) 4.3 % (0.0-7.0); Hematocrit 21.7 % (41.0-53.0); Lymphocytes # (auto) 0.6 10 ^3/uL (0.4-5.4); Lymphocytes % (auto) 5.6 % (10.0-50.0); Mean Corpuscular Hgb Conc. 34.5 g/dL (32.0-36.0); Mean Corpuscular Volume 86.2 fL (80.0-100.0); Monocytes % (auto) 4.8 % (0.0-12.0); Neutrophils # (auto) 9.2 10 ^3/uL (1.6-8.6); Neutrophils % (auto) 84.7 % (37.0-80.0); Red Cell Distribution Width 19.7 % (11.8-14.3); White Blood Cell 10.9 10^3/uL (4.4-10.8)
[2023-08-23 04:34] LABS: Alkaline Phosphatase 166 U/L (46-116); Anion Gap 12 (5-15); Calcium 7.1 mg/dL (8.7-10.4); Carbon Dioxide 18 mmol/L (20-30); Chloride 90 mmol/L (98-107); Glucose 117 mg/dL (74-106); Sodium 120 mmol/L (136-145)
[2023-08-23 04:35] LABS: Albumin 2.7 g/dL (3.2-4.8); Aspartate Aminotransferase 103 U/L (13-40); Bilirubin, Total 3.1 mg/dL (0.2-1.0); Phosphorus 5.2 mg/dL (2.4-5.1)
[2023-08-23 04:36] LABS: Total Protein 4.9 g/dL (5.7-8.2)
[2023-08-23] MEDS: ACCU-CHEK COMFORT CURVE STRIP VI SCH ×3 (05:27→17:35)
[2023-08-23] MEDS: InsuLIN REG 1unit/0.01ml Soln (100units/ml) SC SCH ×3 (05:27→17:35)
[2023-08-23 06:58] LABS: Alanine Aminotransferase 34 U/L (7-40); Blood Urea Nitrogen 49 mg/dL (9-23); Potassium 4.6 mmol/L (3.5-5.1)
[2023-08-23 08:18] LABS: Base Excess -9.7 mmol/L (-2.0-2.0)
[2023-08-23] MEDS ORDERED: CALCIUM GLUC 1,000mg/50ml-NS 50 ML IV ONE (10:15)
[2023-08-23] MEDS: FLUCONAZOLE 200MG/100ML 100 ML IV SCH (10:19)
[2023-08-23] MEDS: CEFEPIME 1GM/ 50ML 50 ML IV SCH (10:42)
[2023-08-23] MEDS: AMIODARONE 450mg/250ml AE 250 ML IV SCH (10:43)
[2023-08-23] MEDS ORDERED: SODIUM BICARBONATE 8.4 % INJ 50ML VIAL IV ONE (12:00)
[2023-08-23] MEDS: EPINEPHrine HCL INJECTION 16 MG in D5W 5% 234 ML IV SCH (12:47)
[2023-08-23] MEDS: DOBUTamine HCL 500 MG in D5W 5% 210 ML IV SCH (14:30)
[2023-08-23 16:10] LABS: Base Excess -8.7 mmol/L (-2.0-2.0)
[2023-08-23] MEDS ORDERED: TPN PER PHARMACY IV NR ×8 (20:00)
[2023-08-23] MEDS: PHENYLEPHRINE INJ 80 MG in SODIUM CHL 0.9% 242 ML IV SCH (21:51)
[2023-08-24] VITALS (107 sets, daily range): BP systolic 86–160; BP diastolic 11–80; PULSE 65–100; RESP 17–35; TEMP 96.8–98.2; O2SAT 34–100
[2023-08-24] MEDS: AMIODARONE 450mg/250ml AE 250 ML IV SCH (02:37)
[2023-08-24 04:35] LABS: Alanine Aminotransferase 20 U/L (7-40); Albumin 2.6 g/dL (3.2-4.8); Alkaline Phosphatase 177 U/L (46-116); Anion Gap 14 (5-15); Aspartate Aminotransferase 61 U/L (13-40); BUN/Creatinine Ratio 8.2 (10.0-20.0); Blood Urea Nitrogen 54 mg/dL (9-23); Calcium 7.3 mg/dL (8.7-10.4); Carbon Dioxide 16 mmol/L (20-30); Chloride 93 mmol/L (98-107); Glucose 116 mg/dL (74-106); Magnesium 2.1 mg/dL (1.6-2.6); Phosphorus 5.1 mg/dL (2.4-5.1); Potassium 3.9 mmol/L (3.5-5.1); Sodium 123 mmol/L (136-145)
[2023-08-24 04:36] LABS: Bilirubin, Total 3.5 mg/dL (0.2-1.0); Total Protein 4.8 g/dL (5.7-8.2)
[2023-08-24] MEDS ORDERED: PHENYLEPHRINE IV 250 ML IV ONE (05:09)
[2023-08-24] MEDS ORDERED: PHENYLEPHRINE HCL 10 MG/ML VL ONE (05:09)
[2023-08-24] MEDS: PHENYLEPHRINE INJ 80 MG in SODIUM CHL 0.9% 242 ML IV SCH ×2 (05:17→21:06)
[2023-08-24] MEDS: fentaNYL Drip 2500mCg/250mlNS 250 ML IV SCH (05:19)
[2023-08-24] MEDS: InsuLIN REG 1unit/0.01ml Soln (100units/ml) SC SCH ×4 (06:00→18:00)
[2023-08-24] MEDS: ACCU-CHEK COMFORT CURVE STRIP VI SCH ×4 (06:06→18:00)
[2023-08-24] MEDS: VASOPRESSIN 20 UNITS in SODIUM CHL 0.9% 99 ML IV SCH ×2 (07:34→18:08)
[2023-08-24 08:28] LABS: Base Excess -9.3 mmol/L (-2.0-2.0)
[2023-08-24] MEDS ORDERED: VANCOMYCIN 750mg/250ml 250 ML IV ONE (08:45)
[2023-08-24] MEDS: CEFEPIME 1GM/ 50ML 50 ML IV SCH (10:00)
[2023-08-24 10:19] LABS: Basophils # (auto) 0 10 ^3/uL (0-0.2); Eosinophils # (auto) 0.1 10 ^3/uL (0-0.8); Eosinophils % (auto) 1.5 % (0.0-7.0); Monocytes # (auto) 0.1 10 ^3/uL (0-1.3); Neutrophils # (auto) 5.5 10 ^3/uL (1.6-8.6); White Blood Cell 5.9 10^3/uL (4.4-10.8)
[2023-08-24 10:21] LABS: Basophils % (auto) 0.3 % (0.0-2.0); Hematocrit 20.2 % (41.0-53.0); Lymphocytes # (auto) 0.3 10 ^3/uL (0.4-5.4); Lymphocytes % (auto) 4.3 % (10.0-50.0); Mean Corpuscular Hemoglobin 29.4 pg (28.0-32.0); Mean Corpuscular Hgb Conc. 34.5 g/dL (32.0-36.0); Mean Corpuscular Volume 85.3 fL (80.0-100.0); Monocytes % (auto) 1.5 % (0.0-12.0); Neutrophils % (auto) 92.4 % (37.0-80.0); Nucleated Red Blood Cells % 0.4 %; Red Blood Cells 2.37 10^6/uL (4.5-5.90); Red Cell Distribution Width 19.6 % (11.8-14.3)
[2023-08-24] MEDS ORDERED: SODIUM CHL 0.9% 1000 ML BAG XX ONE (11:15)
[2023-08-24] MEDS: DOBUTamine HCL 500 MG in D5W 5% 210 ML IV SCH (11:20)
[2023-08-24] MEDS: EPINEPHrine HCL INJECTION 16 MG in D5W 5% 234 ML IV SCH (12:15)
[2023-08-24] MEDS: DOPamine 3200MCG/ML 250 ML IV SCH (12:15)
[2023-08-24] MEDS: FLUCONAZOLE 200MG/100ML 100 ML IV SCH (14:00)
[2023-08-24] MEDS: PANTOPRAZOLE 40mg/50ML NS AE 50 ML IV SCH ×2 (16:15→21:08)
[2023-08-24 16:16] LABS: INR 1.34 (0.9-1.15); Partial Thromboplastin Time 48.4 SEC (24.5-34.5); Prothrombin Time 13.8 sec (9.3-11.8)
[2023-08-24] MEDS ORDERED: TPN*HIGH CONC* PER PHARMACY IV NR ×9 (20:00)
[2023-08-24] MEDS ORDERED: EPOETIN ALFA-EPBX 10,000 UNIT/1ML VIAL SC ONE (21:00)
[2023-08-24] MEDS: MIDAZOLAM DRIP 50 mg/50mL 50 ML IV SCH (21:34)
[2023-08-25] VITALS (110 sets, daily range): BP systolic 90–182; BP diastolic 38–93; PULSE 7–96; RESP 12–31; TEMP 97.2–98.2; O2SAT 93–100
[2023-08-25] MEDS: ACCU-CHEK COMFORT CURVE STRIP VI SCH ×4 (00:07→18:00)
[2023-08-25] MEDS: fentaNYL Drip 2500mCg/250mlNS 250 ML IV SCH (01:38)
[2023-08-25] MEDS: AMIODARONE 450mg/250ml AE 250 ML IV SCH ×3 (01:45→23:53)
[2023-08-25] MEDS: PANTOPRAZOLE 40mg/50ML NS AE 50 ML IV SCH ×4 (01:50→21:32)
[2023-08-25 02:01] LABS: Body Fluid Polymorphonuclear 59 % (0-25); Body Fluid Red Blood Cells 2550 CUMM (0-2000); Body Fluid White Blood Cells 82.5 CUMM (0-200)
[2023-08-25] MEDS: MIDAZOLAM DRIP 50 mg/50mL 50 ML IV SCH ×3 (02:42→22:51)
[2023-08-25 04:28] LABS: Alanine Aminotransferase 17 U/L (7-40); Albumin 2.4 g/dL (3.2-4.8); Alkaline Phosphatase 172 U/L (46-116); Anion Gap 11 (5-15); BUN/Creatinine Ratio 8.5 (10.0-20.0); Blood Urea Nitrogen 50 mg/dL (9-23); Calcium 7.5 mg/dL (8.7-10.4); Carbon Dioxide 21 mmol/L (20-30); Chloride 96 mmol/L (98-107); Magnesium 1.9 mg/dL (1.6-2.6); Potassium 3.3 mmol/L (3.5-5.1)
[2023-08-25 04:29] LABS: Aspartate Aminotransferase 47 U/L (13-40); Bilirubin, Total 4.1 mg/dL (0.2-1.0); Phosphorus 3.1 mg/dL (2.4-5.1)
[2023-08-25 04:30] LABS: Glucose 98 mg/dL (74-106); Total Protein 4.6 g/dL (5.7-8.2)
[2023-08-25 04:41] LABS: Basophils # (auto) 0.1 10 ^3/uL (0-0.2); Basophils % (auto) 0.4 % (0.0-2.0); Eosinophils # (auto) 0.4 10 ^3/uL (0-0.8); Eosinophils % (auto) 2.9 % (0.0-7.0); Hematocrit 28.6 % (41.0-53.0); Hemoglobin 9.5 g/dL (13.5-17.5); Lymphocytes # (auto) 0.5 10 ^3/uL (0.4-5.4); Lymphocytes % (auto) 3.9 % (10.0-50.0); Mean Corpuscular Hgb Conc. 33.4 g/dL (32.0-36.0); Mean Corpuscular Volume 86.9 fL (80.0-100.0); Neutrophils # (auto) 11.9 10 ^3/uL (1.6-8.6); Neutrophils % (auto) 85.8 % (37.0-80.0); Nucleated Red Blood Cells % 0.1 %; Red Blood Cells 3.29 10^6/uL (4.5-5.90); Red Cell Distribution Width 17.8 % (11.8-14.3); White Blood Cell 13.8 10^3/uL (4.4-10.8)
[2023-08-25 05:04] LABS: Sodium 128 mmol/L (136-145)
[2023-08-25] MEDS: VASOPRESSIN 20 UNITS in SODIUM CHL 0.9% 99 ML IV SCH ×2 (05:15→15:12)
[2023-08-25] MEDS: InsuLIN REG 1unit/0.01ml Soln (100units/ml) SC SCH ×4 (06:00→18:00)
[2023-08-25] MEDS: NOREPINEPHRINE BITARTRATE 32 MG in SODIUM CHL 0.9% 218 ML IV SCH (06:10)
[2023-08-25 07:08] LABS: Base Excess -5.3 mmol/L (-2.0-2.0)
[2023-08-25] MEDS: DOBUTamine HCL 500 MG in D5W 5% 210 ML IV SCH (08:10)
[2023-08-25] MEDS: CEFEPIME 1GM/ 50ML 50 ML IV SCH (10:00)
[2023-08-25] MEDS ORDERED: POTASSIUM CHLORIDE 40 MEQ, LIDOCAINE 1% (LOCAL ANESTH.) 4 ML in SODIUM CHL 0.9% 250 ML IV ONE (10:15)
[2023-08-25] MEDS ORDERED: SODIUM CHL 0.9% 1000 ML BAG XX ONE (11:30)
[2023-08-25] MEDS: DOPamine 3200MCG/ML 250 ML IV SCH (12:15)
[2023-08-25] MEDS: EPINEPHrine HCL INJECTION 16 MG in D5W 5% 234 ML IV SCH (12:15)
[2023-08-25] MEDS: FLUCONAZOLE 200MG/100ML 100 ML IV SCH (12:48)
[2023-08-25] MEDS: ALBUMIN 25% 100 ML IV PRN ×2 (15:34→17:19)
[2023-08-25] MEDS ORDERED: TPN*HIGH CONC* PER PHARMACY IV NR ×10 (20:00)
[2023-08-25 23:25] LABS: Body Fluid Red Blood Cells 250000 CUMM (0-2000); Body Fluid White Blood Cells 250 CUMM (0-200)
[2023-08-25 23:41] LABS: Body Fluid Polymorphonuclear 83 % (0-25)
[2023-08-26] VITALS (112 sets, daily range): BP systolic 78–177; BP diastolic 34–80; PULSE 57–96; RESP 12–36; TEMP 95.5–98.2; O2SAT 98–100
[2023-08-26] MEDS: ACCU-CHEK COMFORT CURVE STRIP VI SCH ×4 (00:24→18:30)
[2023-08-26] MEDS: MIDAZOLAM DRIP 50 mg/50mL 50 ML IV SCH ×4 (02:26→19:57)
[2023-08-26] MEDS: PANTOPRAZOLE 40mg/50ML NS AE 50 ML IV SCH ×4 (02:27→15:04)
[2023-08-26] MEDS: VASOPRESSIN 20 UNITS in SODIUM CHL 0.9% 99 ML IV SCH ×2 (03:29→14:36)
[2023-08-26 04:02] LABS: White Blood Cell 10.8 10^3/uL (4.4-10.8)
[2023-08-26 04:09] LABS: Mean Corpuscular Hemoglobin 30.2 pg (28.0-32.0); Mean Corpuscular Hgb Conc. 34.5 g/dL (32.0-36.0); Mean Corpuscular Volume 87.6 fL (80.0-100.0); Red Blood Cells 2.29 10^6/uL (4.5-5.90); Red Cell Distribution Width 18.4 % (11.8-14.3)
[2023-08-26 04:26] LABS: % Iron Saturation 28.2 % (20-55); Albumin 2.4 g/dL (3.2-4.8); Alkaline Phosphatase 106 U/L (46-116); Anion Gap 10 (5-15); Aspartate Aminotransferase 30 U/L (13-40); BUN/Creatinine Ratio 9.4 (10.0-20.0); Blood Urea Nitrogen 59 mg/dL (9-23); Calcium 7.8 mg/dL (8.5-10.1); Carbon Dioxide 20 mmol/L (20-30); Chloride 102 mmol/L (98-107); Glucose 109 mg/dL (74-106); Phosphorus 2.4 mg/dL (2.4-5.1); Potassium 3.3 mmol/L (3.5-5.1); Sodium 132 mmol/L (136-145)
[2023-08-26 04:37] LABS: Hemoglobin 6.9 g/dL (13.5-17.5)
[2023-08-26 04:39] LABS: Band Neutrophils % (manual) 0; Basophils % (manual) 0 (0.0-2.0); Blast Cells 0; Promyelocytes % 0; Reactive Lymphocytes 0
[2023-08-26 04:53] LABS: Alanine Aminotransferase 15 U/L (7-40)
[2023-08-26] MEDS: DOBUTamine HCL 500 MG in D5W 5% 210 ML IV SCH (05:00)
[2023-08-26 05:06] LABS: Magnesium 2.1 mg/dL (1.6-2.6)
[2023-08-26] MEDS: ALBUMIN 25% 100 ML IV PRN (05:50)
[2023-08-26] MEDS: InsuLIN REG 1unit/0.01ml Soln (100units/ml) SC SCH ×4 (06:00→18:00)
[2023-08-26] MEDS ORDERED: SODIUM CHL 0.9% 1000 ML BAG XX ONE ×2 (07:00)
[2023-08-26 08:03] LABS: Eosinophils % (manual) 12 (0-7); Lymphocytes % (manual) 7 (10.0-50.0); Metamyelocytes % 4; Monocytes % (manual) 5 (0-12); Myelocytes % 1; Platelet Estimate Decreased
[2023-08-26] MEDS: PHENYLEPHRINE INJ 80 MG in SODIUM CHL 0.9% 242 ML IV SCH (09:30)
[2023-08-26] MEDS: NOREPINEPHRINE BITARTRATE 32 MG in SODIUM CHL 0.9% 218 ML IV SCH ×2 (09:30→20:28)
[2023-08-26] MEDS: fentaNYL Drip 2500mCg/250mlNS 250 ML IV SCH (11:07)
[2023-08-26] MEDS ORDERED: SODIUM PHOSPHATES 20 MEQ in SODIUM CHL 0.9% 100 ML IV ONE (11:45)
[2023-08-26] MEDS ORDERED: POTASSIUM PHOSPHATE 22 MEQ in SODIUM CHL 0.9% 100 ML IV ONE (12:00)
[2023-08-26 12:07] LABS: Protein, Body Fluid 1.3 g/dL (.)
[2023-08-26] MEDS: EPINEPHrine HCL INJECTION 16 MG in D5W 5% 234 ML IV SCH (12:12)
[2023-08-26] MEDS: DOPamine 3200MCG/ML 250 ML IV SCH (12:12)
[2023-08-26] MEDS: FLUCONAZOLE 200MG/100ML 100 ML IV SCH (12:12)
[2023-08-26] MEDS: CEFEPIME 1GM/ 50ML 50 ML IV SCH (13:22)
[2023-08-26 13:43] LABS: Base Excess -1.1 mmol/L (-2.0-2.0)
[2023-08-26] MEDS ORDERED: VANCOMYCIN 1GM/200ML 250 ML IV ONE (14:00)
[2023-08-26] MEDS ORDERED: TPN*HIGH CONC* PER PHARMACY IV NR ×10 (20:00)
[2023-08-26] MEDS ORDERED: EPOETIN ALFA-EPBX 10,000 UNIT/1ML VIAL SC ONE (21:00)
[2023-08-27] VITALS (110 sets, daily range): BP systolic 95–145; BP diastolic 31–65; PULSE 62–96; RESP 25–30; TEMP 96.6–99.3; O2SAT 96–100
[2023-08-27] MEDS: ACCU-CHEK COMFORT CURVE STRIP VI SCH ×5 (00:06→23:25)
[2023-08-27] MEDS: VASOPRESSIN 20 UNITS in SODIUM CHL 0.9% 99 ML IV SCH ×3 (01:43→21:50)
[2023-08-27] MEDS: DOBUTamine HCL 500 MG in D5W 5% 210 ML IV SCH ×2 (01:50→21:49)
[2023-08-27] MEDS: MIDAZOLAM DRIP 50 mg/50mL 50 ML IV SCH ×6 (02:33→23:17)
[2023-08-27] MEDS: fentaNYL Drip 2500mCg/250mlNS 250 ML IV SCH ×2 (03:18→16:09)
[2023-08-27] MEDS: AMIODARONE 450mg/250ml AE 250 ML IV SCH ×2 (03:25→17:26)
[2023-08-27 04:09] LABS: Basophils # (auto) 0.1 10 ^3/uL (0-0.2); Basophils % (auto) 0.5 % (0.0-2.0); Neutrophils # (auto) 8.9 10 ^3/uL (1.6-8.6)
[2023-08-27 04:11] LABS: Eosinophils # (auto) 0.9 10 ^3/uL (0-0.8); Eosinophils % (auto) 8.1 % (0.0-7.0); Hematocrit 20.6 % (41.0-53.0); Lymphocytes # (auto) 0.7 10 ^3/uL (0.4-5.4); Lymphocytes % (auto) 5.8 % (10.0-50.0); Mean Corpuscular Hemoglobin 30.2 pg (28.0-32.0); Monocytes % (auto) 8.7 % (0.0-12.0); Neutrophils % (auto) 76.9 % (37.0-80.0); Nucleated Red Blood Cells % 0.8 %; Red Blood Cells 2.31 10^6/uL (4.5-5.90); Red Cell Distribution Width 17.6 % (11.8-14.3); White Blood Cell 11.5 10^3/uL (4.4-10.8)
[2023-08-27] MEDS: ALBUMIN 25% 100 ML IV PRN ×2 (04:15→05:00)
[2023-08-27 04:17] LABS: Alanine Aminotransferase 13 U/L (7-40); Albumin 2.7 g/dL (3.2-4.8); Alkaline Phosphatase 117 U/L (46-116); Anion Gap 9 (5-15); Aspartate Aminotransferase 30 U/L (13-40); BUN/Creatinine Ratio 9.2 (10.0-20.0); Calcium 8.1 mg/dL (8.5-10.1); Carbon Dioxide 24 mmol/L (20-30); Chloride 105 mmol/L (98-107); Glucose 121 mg/dL (74-106); Potassium 3.3 mmol/L (3.5-5.1); Sodium 138 mmol/L (136-145)
[2023-08-27 04:18] LABS: Bilirubin, Total 3.7 mg/dL (0.2-1.0); Phosphorus 2.6 mg/dL (2.4-5.1); Total Protein 4.5 g/dL (5.7-8.2)
[2023-08-27 04:25] LABS: Blood Urea Nitrogen 37 mg/dL (9-23)
[2023-08-27] MEDS: InsuLIN REG 1unit/0.01ml Soln (100units/ml) SC SCH ×5 (05:52→23:25)
[2023-08-27] MEDS ORDERED: POTASSIUM CHL 20MEQ/50ML 50 ML IV ONE ×2 (06:30→09:30)
[2023-08-27] MEDS ORDERED: SODIUM CHL 0.9% 1000 ML BAG XX ONE (07:00)
[2023-08-27 08:18] LABS: Base Excess -1.8 mmol/L (-2.0-2.0)
[2023-08-27 09:59] LABS: Hepatitis B Surface Antigen Negative (Negative)
[2023-08-27] MEDS: FLUCONAZOLE 200MG/100ML 100 ML IV SCH (10:04)
[2023-08-27] MEDS: PANTOPRAZOLE 40 MG/10 ML VIAL INJ IV SCH ×2 (10:05→21:48)
[2023-08-27] MEDS: CEFEPIME 1GM/ 50ML 50 ML IV SCH (10:05)
[2023-08-27 10:19] LABS: Hepatitis B Core IgM Negative
[2023-08-27 10:20] LABS: Hepatitis A Ab IgM Negative
[2023-08-27 11:14] LABS: Hepatitis C Antibody Reactive (Negative)
[2023-08-27 12:07] LABS: Protein, Body Fluid 1.6 g/dL (.)
[2023-08-27] MEDS: PHENYLEPHRINE INJ 80 MG in SODIUM CHL 0.9% 242 ML IV SCH (19:32)
[2023-08-27] MEDS: EPINEPHrine HCL INJECTION 16 MG in D5W 5% 234 ML IV SCH (19:32)
[2023-08-27] MEDS: DOPamine 3200MCG/ML 250 ML IV SCH (19:32)
[2023-08-27] MEDS ORDERED: TPN*HIGH CONC* PER PHARMACY IV NR ×10 (20:00)
[2023-08-28] VITALS (112 sets, daily range): BP systolic 89–159; BP diastolic 26–97; PULSE 58–95; RESP 23–30; TEMP 97–99.5; O2SAT 95–100
[2023-08-28 04:21] LABS: Hematocrit 19.9 % (41.0-53.0); Mean Corpuscular Hemoglobin 30.4 pg (28.0-32.0); Mean Corpuscular Hgb Conc. 33.7 g/dL (32.0-36.0); Mean Corpuscular Volume 90.3 fL (80.0-100.0); White Blood Cell 13.6 10^3/uL (4.4-10.8)
[2023-08-28 04:29] LABS: Alanine Aminotransferase 12 U/L (7-40); Albumin 2.8 g/dL (3.2-4.8); Alkaline Phosphatase 117 U/L (46-116); Anion Gap 11 (5-15); Aspartate Aminotransferase 29 U/L (13-40); BUN/Creatinine Ratio 10.8 (10.0-20.0); Calcium 7.7 mg/dL (8.7-10.4); Carbon Dioxide 23 mmol/L (20-30); Chloride 105 mmol/L (98-107); Glucose 116 mg/dL (74-106); Magnesium 2.2 mg/dL (1.6-2.6); Potassium 3.4 mmol/L (3.5-5.1); Sodium 139 mmol/L (136-145)
[2023-08-28 04:30] LABS: Bilirubin, Total 4.1 mg/dL (0.2-1.0); Phosphorus 2.9 mg/dL (2.4-5.1); Total Protein 4.5 g/dL (5.7-8.2)
[2023-08-28 04:35] LABS: Blood Urea Nitrogen 51 mg/dL (9-23)
[2023-08-28] MEDS: AMIODARONE 450mg/250ml AE 250 ML IV SCH ×3 (04:45→23:48)
[2023-08-28 04:57] LABS: Hemoglobin 6.7 g/dL (13.5-17.5)
[2023-08-28 04:58] LABS: Basophils % (manual) 0 (0.0-2.0); Blast Cells 0; Metamyelocytes % 0; Myelocytes % 0; Promyelocytes % 0; Reactive Lymphocytes 0
[2023-08-28] MEDS ORDERED: POTASSIUM CHL 20MEQ/100ML 100 ML IV ONE (05:15)
[2023-08-28] MEDS: ACCU-CHEK COMFORT CURVE STRIP VI SCH ×4 (05:45→23:48)
[2023-08-28] MEDS: InsuLIN REG 1unit/0.01ml Soln (100units/ml) SC SCH ×4 (05:45→23:48)
[2023-08-28] MEDS: MIDAZOLAM DRIP 50 mg/50mL 50 ML IV SCH ×3 (06:09→21:17)
[2023-08-28 06:59] LABS: Band Neutrophils % (manual) 3; Eosinophils % (manual) 10 (0-7); Lymphocytes % (manual) 2 (10.0-50.0); Monocytes % (manual) 11 (0-12); Platelet Estimate Decreased
[2023-08-28 07:00] LABS: Anisocytosis Slight; Target Cell FEW
[2023-08-28] MEDS ORDERED: SODIUM CHL 0.9% 1000 ML BAG XX ONE (07:00)
[2023-08-28 07:01] LABS: Hypochromia Slight
[2023-08-28] MEDS: NOREPINEPHRINE BITARTRATE 32 MG in SODIUM CHL 0.9% 218 ML IV SCH (08:54)
[2023-08-28 09:00] LABS: Base Excess -3.6 mmol/L (-2.0-2.0)
[2023-08-28] MEDS ORDERED: PHYTONADIONE (VIT K)10 MG/ML 1ML VIAL SUBCUT ONE (09:00)
[2023-08-28] MEDS: PHENYLEPHRINE INJ 80 MG in SODIUM CHL 0.9% 242 ML IV SCH (09:30)
[2023-08-28 09:33] LABS: INR 1.28 (0.9-1.15); Prothrombin Time 13.2 sec (9.3-11.8)
[2023-08-28] MEDS: fentaNYL Drip 2500mCg/250mlNS 250 ML IV SCH (10:13)
[2023-08-28] MEDS: VASOPRESSIN 20 UNITS in SODIUM CHL 0.9% 99 ML IV SCH ×2 (11:00→20:39)
[2023-08-28] MEDS: ALBUMIN 25% 100 ML IV PRN (11:27)
[2023-08-28] MEDS ORDERED: ALBUMIN 25% 100 ML IV ONE ×2 (12:00→13:00)
[2023-08-28] MEDS: DOPamine 3200MCG/ML 250 ML IV SCH (12:15)
[2023-08-28] MEDS: EPINEPHrine HCL INJECTION 16 MG in D5W 5% 234 ML IV SCH (12:15)
[2023-08-28] MEDS: FLUCONAZOLE 200MG/100ML 100 ML IV SCH (15:31)
[2023-08-28] MEDS: PANTOPRAZOLE 40 MG/10 ML VIAL INJ IV SCH ×2 (15:40→21:41)
[2023-08-28] MEDS: CEFEPIME 1GM/ 50ML 50 ML IV SCH (17:14)
[2023-08-28] MEDS: DOBUTamine HCL 500 MG in D5W 5% 210 ML IV SCH (19:30)
[2023-08-28] MEDS ORDERED: TPN*HIGH CONC* PER PHARMACY IV NR ×10 (20:00)
[2023-08-29] VITALS (123 sets, daily range): BP systolic 87–132; BP diastolic 25–62; PULSE 55–83; RESP 20–30; TEMP 98.2–99.7; O2SAT 97–100
[2023-08-29] MEDS: fentaNYL Drip 2500mCg/250mlNS 250 ML IV SCH ×2 (01:24→18:54)
[2023-08-29 04:43] LABS: Hematocrit 22.9 % (41.0-53.0); Hemoglobin 7.7 g/dL (13.5-17.5); Mean Corpuscular Hemoglobin 30.5 pg (28.0-32.0); Mean Corpuscular Hgb Conc. 33.6 g/dL (32.0-36.0); Red Blood Cells 2.51 10^6/uL (4.5-5.90); Red Cell Distribution Width 15.8 % (11.8-14.3); White Blood Cell 13.3 10^3/uL (4.4-10.8)
[2023-08-29 04:53] LABS: Alanine Aminotransferase 10 U/L (7-40); Albumin 2.9 g/dL (3.2-4.8); Alkaline Phosphatase 105 U/L (46-116); Anion Gap 10 (5-15); Aspartate Aminotransferase 31 U/L (13-40); BUN/Creatinine Ratio 10.7 (10.0-20.0); Bilirubin, Total 4.4 mg/dL (0.2-1.0); Calcium 7.1 mg/dL (8.7-10.4); Carbon Dioxide 23 mmol/L (20-30); Chloride 110 mmol/L (98-107); Glucose 96 mg/dL (74-106); Phosphorus 2.6 mg/dL (2.4-5.1); Potassium 3.2 mmol/L (3.5-5.1); Sodium 143 mmol/L (136-145)
[2023-08-29 04:54] LABS: Total Protein 4.5 g/dL (5.7-8.2)
[2023-08-29 04:55] LABS: Triglycerides 73 mg/dL (< 150)
[2023-08-29 05:04] LABS: Basophils % (manual) 0 (0.0-2.0); Blast Cells 0; Promyelocytes % 0; Reactive Lymphocytes 0
[2023-08-29] MEDS: InsuLIN REG 1unit/0.01ml Soln (100units/ml) SC SCH ×3 (05:28→17:42)
[2023-08-29] MEDS: ACCU-CHEK COMFORT CURVE STRIP VI SCH ×3 (05:28→17:41)
[2023-08-29 05:35] LABS: Blood Urea Nitrogen 37 mg/dL (9-23)
[2023-08-29 07:28] LABS: Base Excess 0.9 mmol/L (-2.0-2.0)
[2023-08-29] MEDS ORDERED: POTASSIUM PHOSPHATE 22 MEQ in SODIUM CHL 0.9% 100 ML IV ONE (09:00)
[2023-08-29] MEDS ORDERED: CALCIUM GLUC 1,000mg/50ml-NS 50 ML IV ONE (09:00)
[2023-08-29 09:06] LABS: Band Neutrophils % (manual) 8; Eosinophils % (manual) 10 (0-7); Lymphocytes % (manual) 5 (10.0-50.0); Metamyelocytes % 4; Monocytes % (manual) 3 (0-12); Myelocytes % 1; Platelet Estimate Decreased
[2023-08-29] MEDS: VASOPRESSIN 20 UNITS in SODIUM CHL 0.9% 99 ML IV SCH ×2 (09:15→20:25)
[2023-08-29] MEDS: PHENYLEPHRINE INJ 80 MG in SODIUM CHL 0.9% 242 ML IV SCH (09:30)
[2023-08-29] MEDS: DEXTROSE (50%) 50ML SYRG IV SCH (11:47)
[2023-08-29] MEDS ORDERED: IRON SUCROSE COMPLEX 200 MG in SODIUM CHL 0.9% 100 ML IV SCH (12:00)
[2023-08-29] MEDS: EPINEPHrine HCL INJECTION 16 MG in D5W 5% 234 ML IV SCH (12:15)
[2023-08-29] MEDS: DOPamine 3200MCG/ML 250 ML IV SCH (12:15)
[2023-08-29] MEDS: FLUCONAZOLE 200MG/100ML 100 ML IV SCH (13:54)
[2023-08-29] MEDS: PANTOPRAZOLE 40 MG/10 ML VIAL INJ IV SCH ×2 (13:54→21:10)
[2023-08-29 14:39] LABS: Gastric Occult Blood Negative (Negative); Gastric Occult Blood pH 2
[2023-08-29] MEDS: DOBUTamine HCL 500 MG in D5W 5% 210 ML IV SCH (16:20)
[2023-08-29] MEDS: SODIUM FERR GLUC 62.5MG/5ML 125 MG in SODIUM CHL 0.9% 100 ML IV SCH (18:55)
[2023-08-29] MEDS: NOREPINEPHRINE BITARTRATE 32 MG in SODIUM CHL 0.9% 218 ML IV SCH (19:03)
[2023-08-29] MEDS ORDERED: TPN*HIGH CONC* PER PHARMACY IV NR ×10 (20:00)
[2023-08-30] VITALS (108 sets, daily range): BP systolic 94–140; BP diastolic 14–70; PULSE 57–94; RESP 15–36; TEMP 96.3–100; O2SAT 95–100
[2023-08-30] MEDS: ACCU-CHEK COMFORT CURVE STRIP VI SCH ×4 (00:43→17:36)
[2023-08-30 03:53] LABS: Hematocrit 25.4 % (41.0-53.0); Hemoglobin 8.5 g/dL (13.5-17.5); Mean Corpuscular Hemoglobin 30.9 pg (28.0-32.0); Mean Corpuscular Hgb Conc. 33.4 g/dL (32.0-36.0); Mean Corpuscular Volume 92.5 fL (80.0-100.0); Red Blood Cells 2.74 10^6/uL (4.5-5.90); Red Cell Distribution Width 16.2 % (11.8-14.3); White Blood Cell 13.8 10^3/uL (4.4-10.8)
[2023-08-30 04:16] LABS: Alanine Aminotransferase 13 U/L (7-40); Alkaline Phosphatase 143 U/L (46-116); Anion Gap 12 (5-15); Aspartate Aminotransferase 42 U/L (13-40); BUN/Creatinine Ratio 12.7 (10.0-20.0); Bilirubin, Total 4.4 mg/dL (0.2-1.0); Calcium 7.7 mg/dL (8.7-10.4); Carbon Dioxide 25 mmol/L (20-30); Chloride 104 mmol/L (98-107); Glucose 109 mg/dL (74-106); Magnesium 2.3 mg/dL (1.6-2.6); Phosphorus 4.7 mg/dL (2.4-5.1); Sodium 141 mmol/L (136-145); Total Protein 5.1 g/dL (5.7-8.2)
[2023-08-30 04:42] LABS: Blood Urea Nitrogen 61 mg/dL (9-23)
[2023-08-30 04:47] LABS: Basophils % (manual) 0 (0.0-2.0); Blast Cells 0; Promyelocytes % 0; Reactive Lymphocytes 0
[2023-08-30] MEDS: MIDAZOLAM DRIP 50 mg/50mL 50 ML IV SCH (05:45)
[2023-08-30] MEDS: AMIODARONE 450mg/250ml AE 250 ML IV SCH ×2 (05:57→14:09)
[2023-08-30] MEDS: InsuLIN REG 1unit/0.01ml Soln (100units/ml) SC SCH ×4 (05:59→17:36)
[2023-08-30] MEDS ORDERED: SODIUM CHL 0.9% 1000 ML BAG XX ONE (07:00)
[2023-08-30] MEDS: VASOPRESSIN 20 UNITS in SODIUM CHL 0.9% 99 ML IV SCH ×2 (07:32→18:39)
[2023-08-30 08:29] LABS: Band Neutrophils % (manual) 8; Eosinophils % (manual) 10 (0-7); Lymphocytes % (manual) 4 (10.0-50.0); Metamyelocytes % 6; Monocytes % (manual) 6 (0-12); Myelocytes % 4; Platelet Estimate Decreased
[2023-08-30] MEDS ORDERED: CALCIUM GLUC 1,000mg/50ml-NS 50 ML IV ONE (09:00)
[2023-08-30] MEDS: NOREPINEPHRINE BITARTRATE 32 MG in SODIUM CHL 0.9% 218 ML IV SCH (09:30)
[2023-08-30] MEDS: PHENYLEPHRINE INJ 80 MG in SODIUM CHL 0.9% 242 ML IV SCH (09:30)
[2023-08-30] MEDS ORDERED: POTASSIUM EFFERVESENT TAB 25 MEQ PO SCH (10:00)
[2023-08-30] MEDS: PANTOPRAZOLE 40 MG/10 ML VIAL INJ IV SCH ×2 (10:22→21:20)
[2023-08-30] MEDS: FLUCONAZOLE 200MG/100ML 100 ML IV SCH (10:22)
[2023-08-30] MEDS: fentaNYL Drip 2500mCg/250mlNS 250 ML IV SCH (10:29)
[2023-08-30 11:21] LABS: Base Excess -0.9 mmol/L (-2.0-2.0)
[2023-08-30] MEDS: EPINEPHrine HCL INJECTION 16 MG in D5W 5% 234 ML IV SCH (12:15)
[2023-08-30] MEDS: DOPamine 3200MCG/ML 250 ML IV SCH (12:15)
[2023-08-30] MEDS: SODIUM FERR GLUC 62.5MG/5ML 125 MG in SODIUM CHL 0.9% 100 ML IV SCH (12:49)
[2023-08-30] MEDS: DOBUTamine HCL 500 MG in D5W 5% 210 ML IV SCH (13:10)
[2023-08-30] MEDS ORDERED: TPN*HIGH CONC* PER PHARMACY IV NR ×9 (20:00)
[2023-08-31] VITALS (111 sets, daily range): BP systolic 95–158; BP diastolic 11–73; PULSE 66–111; RESP 13–47; TEMP 97.7–100; O2SAT 89–100
[2023-08-31] MEDS: ACCU-CHEK COMFORT CURVE STRIP VI SCH ×4 (00:23→18:00)
[2023-08-31] MEDS: AMIODARONE 450mg/250ml AE 250 ML IV SCH ×2 (03:18→17:30)
[2023-08-31 04:01] LABS: Hematocrit 24.6 % (41.0-53.0); Hemoglobin 8.2 g/dL (13.5-17.5); Mean Corpuscular Hemoglobin 31.2 pg (28.0-32.0); Mean Corpuscular Hgb Conc. 33.4 g/dL (32.0-36.0); Mean Corpuscular Volume 93.3 fL (80.0-100.0); Red Blood Cells 2.64 10^6/uL (4.5-5.90); Red Cell Distribution Width 16.7 % (11.8-14.3); White Blood Cell 17.3 10^3/uL (4.4-10.8)
[2023-08-31 04:05] LABS: Alanine Aminotransferase 17 U/L (7-40); Albumin 3.8 g/dL (3.2-4.8); Alkaline Phosphatase 172 U/L (46-116); Anion Gap 13 (5-15); Aspartate Aminotransferase 48 U/L (13-40); BUN/Creatinine Ratio 13.5 (10.0-20.0); Carbon Dioxide 25 mmol/L (20-30); Chloride 102 mmol/L (98-107); Glucose 98 mg/dL (74-106); Magnesium 2.4 mg/dL (1.6-2.6); Phosphorus 5.4 mg/dL (2.4-5.1); Potassium 4.7 mmol/L (3.5-5.1); Sodium 140 mmol/L (136-145)
[2023-08-31 04:06] LABS: Bilirubin, Total 5.8 mg/dL (0.2-1.0); Total Protein 6.2 g/dL (5.7-8.2)
[2023-08-31 04:08] LABS: Band Neutrophils % (manual) 0; Basophils % (manual) 0 (0.0-2.0); Metamyelocytes % 0; Myelocytes % 0; Promyelocytes % 0; Reactive Lymphocytes 0
[2023-08-31 04:09] LABS: Blast Cells 0
[2023-08-31 04:11] LABS: Blood Urea Nitrogen 72 mg/dL (9-23)
[2023-08-31] MEDS: MIDAZOLAM DRIP 50 mg/50mL 50 ML IV SCH (05:45)
[2023-08-31] MEDS: VASOPRESSIN 20 UNITS in SODIUM CHL 0.9% 99 ML IV SCH ×2 (05:46→16:53)
[2023-08-31] MEDS: InsuLIN REG 1unit/0.01ml Soln (100units/ml) SC SCH ×4 (05:54→18:00)
[2023-08-31] MEDS ORDERED: SODIUM CHL 0.9% 1000 ML BAG XX ONE (07:00)
[2023-08-31 07:33] LABS: Eosinophils % (manual) 3 (0-7); Lymphocytes % (manual) 5 (10.0-50.0); Monocytes % (manual) 4 (0-12); Platelet Estimate Decreased
[2023-08-31 07:40] LABS: Base Excess -0.6 mmol/L (-2.0-2.0)
[2023-08-31 07:59] LABS: Base Excess -0.6 mmol/L (-2.0-2.0)
[2023-08-31] MEDS: PHENYLEPHRINE INJ 80 MG in SODIUM CHL 0.9% 242 ML IV SCH (09:30)
[2023-08-31] MEDS: NOREPINEPHRINE BITARTRATE 32 MG in SODIUM CHL 0.9% 218 ML IV SCH (09:30)
[2023-08-31] MEDS ORDERED: ALBUMIN 25% 100 ML IV PRN (09:45)
[2023-08-31] MEDS: DOBUTamine HCL 500 MG in D5W 5% 210 ML IV SCH (10:00)
[2023-08-31] MEDS ORDERED: CALCIUM GLUC 1,000mg/50ml-NS 50 ML IV ONE (11:30)
[2023-08-31] MEDS: DOPamine 3200MCG/ML 250 ML IV SCH (12:15)
[2023-08-31] MEDS: EPINEPHrine HCL INJECTION 16 MG in D5W 5% 234 ML IV SCH (12:15)
[2023-08-31] MEDS: PANTOPRAZOLE 40 MG/10 ML VIAL INJ IV SCH ×2 (13:13→21:16)
[2023-08-31] MEDS: FLUCONAZOLE 200MG/100ML 100 ML IV SCH (14:11)
[2023-08-31] MEDS: fentaNYL Drip 2500mCg/250mlNS 250 ML IV SCH (14:12)
[2023-08-31] MEDS: SODIUM FERR GLUC 62.5MG/5ML 125 MG in SODIUM CHL 0.9% 100 ML IV SCH (15:43)
[2023-08-31] MEDS: CEFEPIME 1GM/ 50ML 50 ML IV SCH (17:30)
[2023-08-31] MEDS ORDERED: EPOETIN ALFA-EPBX 10,000 UNIT/1ML VIAL SC ONE (21:00)
[2023-08-31] MEDS: TPN*HIGH CONC* PER PHARMACY IV NR ×7 (21:15)
[2023-09-01] VITALS (106 sets, daily range): BP systolic 95–133; BP diastolic 31–69; PULSE 63–94; RESP 18–31; TEMP 97–99.5; O2SAT 98–100
[2023-09-01] MEDS: ACCU-CHEK COMFORT CURVE STRIP VI SCH ×4 (00:27→18:22)
[2023-09-01] MEDS: VASOPRESSIN 20 UNITS in SODIUM CHL 0.9% 99 ML IV SCH ×2 (04:00→15:07)
[2023-09-01 04:32] LABS: Basophils % (auto) 0.3 % (0.0-2.0); Hematocrit 24.8 % (41.0-53.0); Hemoglobin 8.4 g/dL (13.5-17.5); Mean Corpuscular Hemoglobin 31.7 pg (28.0-32.0)
[2023-09-01 04:34] LABS: Basophils # (auto) 0 10 ^3/uL (0-0.2); Eosinophils # (auto) 0.8 10 ^3/uL (0-0.8); Eosinophils % (auto) 5.4 % (0.0-7.0); Lymphocytes # (auto) 0.6 10 ^3/uL (0.4-5.4); Lymphocytes % (auto) 3.9 % (10.0-50.0); Mean Corpuscular Hgb Conc. 33.9 g/dL (32.0-36.0); Mean Corpuscular Volume 93.5 fL (80.0-100.0); Monocytes # (auto) 0.8 10 ^3/uL (0-1.3); Monocytes % (auto) 5.2 % (0.0-12.0); Neutrophils # (auto) 12.9 10 ^3/uL (1.6-8.6); Neutrophils % (auto) 85.2 % (37.0-80.0); Red Blood Cells 2.65 10^6/uL (4.5-5.90); White Blood Cell 15.1 10^3/uL (4.4-10.8)
[2023-09-01 04:56] LABS: Alanine Aminotransferase 23 U/L (7-40); Albumin 3.5 g/dL (3.2-4.8); Alkaline Phosphatase 192 U/L (46-116); Anion Gap 13 (5-15); Aspartate Aminotransferase 59 U/L (13-40); BUN/Creatinine Ratio 14.5 (10.0-20.0); Blood Urea Nitrogen 69 mg/dL (9-23); Calcium 8.3 mg/dL (8.7-10.4); Carbon Dioxide 26 mmol/L (20-30); Chloride 103 mmol/L (98-107); Glucose 104 mg/dL (74-106); Magnesium 2.3 mg/dL (1.6-2.6); Phosphorus 3.6 mg/dL (2.4-5.1); Potassium 4.2 mmol/L (3.5-5.1); Sodium 142 mmol/L (136-145)
[2023-09-01 04:57] LABS: Bilirubin, Total 6.7 mg/dL (0.2-1.0); Total Protein 6.1 g/dL (5.7-8.2)
[2023-09-01] MEDS: fentaNYL Drip 2500mCg/250mlNS 250 ML IV SCH (05:44)
[2023-09-01] MEDS: MIDAZOLAM DRIP 50 mg/50mL 50 ML IV SCH (05:45)
[2023-09-01] MEDS: InsuLIN REG 1unit/0.01ml Soln (100units/ml) SC SCH ×4 (06:00→18:00)
[2023-09-01] MEDS: DOBUTamine HCL 500 MG in D5W 5% 210 ML IV SCH (06:50)
[2023-09-01 07:20] LABS: Base Excess -1.2 mmol/L (-2.0-2.0)
[2023-09-01] MEDS: NOREPINEPHRINE BITARTRATE 32 MG in SODIUM CHL 0.9% 218 ML IV SCH (09:30)
[2023-09-01] MEDS: PHENYLEPHRINE INJ 80 MG in SODIUM CHL 0.9% 242 ML IV SCH (09:30)
[2023-09-01] MEDS: PANTOPRAZOLE 40 MG/10 ML VIAL INJ IV SCH ×2 (09:54→21:56)
[2023-09-01] MEDS: FLUCONAZOLE 200MG/100ML 100 ML IV SCH (10:04)
[2023-09-01] MEDS: CEFEPIME 1GM/ 50ML 50 ML IV SCH (12:07)
[2023-09-01] MEDS: AMIODARONE 450mg/250ml AE 250 ML IV SCH (12:10)
[2023-09-01] MEDS: EPINEPHrine HCL INJECTION 16 MG in D5W 5% 234 ML IV SCH (12:15)
[2023-09-01] MEDS: DOPamine 3200MCG/ML 250 ML IV SCH (12:15)
[2023-09-01] MEDS: SODIUM FERR GLUC 62.5MG/5ML 125 MG in SODIUM CHL 0.9% 100 ML IV SCH (13:00)
[2023-09-01] MEDS: TPN*HIGH CONC* PER PHARMACY IV NR ×7 (19:54)
[2023-09-01] MEDS ORDERED: TPN*HIGH CONC* PER PHARMACY IV NR ×8 (20:00)
[2023-09-02] VITALS (105 sets, daily range): BP systolic 87–128; BP diastolic 12–62; PULSE 72–98; RESP 28–33; TEMP 97–99.1; O2SAT 98–100
[2023-09-02] MEDS: AMIODARONE 450mg/250ml AE 250 ML IV SCH (01:41)
[2023-09-02] MEDS: VASOPRESSIN 20 UNITS in SODIUM CHL 0.9% 99 ML IV SCH ×2 (02:14→12:57)
[2023-09-02] MEDS: DOBUTamine HCL 500 MG in D5W 5% 210 ML IV SCH (03:40)
[2023-09-02 04:16] LABS: Albumin 3.3 g/dL (3.2-4.8); Alkaline Phosphatase 345 U/L (46-116); Anion Gap 14 (5-15); Aspartate Aminotransferase 120 U/L (13-40); BUN/Creatinine Ratio 15.1 (10.0-20.0); Bilirubin, Total 8.5 mg/dL (0.2-1.0); Calcium 8.4 mg/dL (8.7-10.4); Carbon Dioxide 24 mmol/L (20-30); Chloride 102 mmol/L (98-107); Glucose 77 mg/dL (74-106); Phosphorus 4.3 mg/dL (2.4-5.1); Potassium 4.6 mmol/L (3.5-5.1); Sodium 140 mmol/L (136-145)
[2023-09-02 04:21] LABS: Blood Urea Nitrogen 84 mg/dL (9-23)
[2023-09-02 04:24] LABS: Magnesium 2.3 mg/dL (1.6-2.6)
[2023-09-02 04:31] LABS: Alanine Aminotransferase 41 U/L (7-40)
[2023-09-02] MEDS: ACCU-CHEK COMFORT CURVE STRIP VI SCH ×4 (05:35→17:52)
[2023-09-02] MEDS: MIDAZOLAM DRIP 50 mg/50mL 50 ML IV SCH (05:35)
[2023-09-02] MEDS: InsuLIN REG 1unit/0.01ml Soln (100units/ml) SC SCH ×4 (05:36→17:52)
[2023-09-02] MEDS ORDERED: SODIUM CHL 0.9% 1000 ML BAG XX ONE (07:00)
[2023-09-02 07:14] LABS: Base Excess -0.8 mmol/L (-2.0-2.0)
[2023-09-02] MEDS: PHENYLEPHRINE INJ 80 MG in SODIUM CHL 0.9% 242 ML IV SCH (09:30)
[2023-09-02] MEDS: NOREPINEPHRINE BITARTRATE 32 MG in SODIUM CHL 0.9% 218 ML IV SCH ×2 (09:30→22:03)
[2023-09-02] MEDS: CEFEPIME 1GM/ 50ML 50 ML IV SCH (09:42)
[2023-09-02] MEDS: PANTOPRAZOLE 40 MG/10 ML VIAL INJ IV SCH ×2 (09:42→22:03)
[2023-09-02] MEDS: DEXTROSE (50%) 50ML SYRG IV SCH ×2 (09:57→15:54)
[2023-09-02] MEDS: fentaNYL Drip 2500mCg/250mlNS 250 ML IV SCH (11:09)
[2023-09-02] MEDS: SODIUM FERR GLUC 62.5MG/5ML 125 MG in SODIUM CHL 0.9% 100 ML IV SCH (12:56)
[2023-09-02] MEDS: DOPamine 3200MCG/ML 250 ML IV SCH (12:56)
[2023-09-02] MEDS: EPINEPHrine HCL INJECTION 16 MG in D5W 5% 234 ML IV SCH (12:57)
[2023-09-02] MEDS ORDERED: LIDOCAINE 2%HCL (LOCAL ANESTH.) INJ 20ML MDV ONE (15:39)
[2023-09-02] MEDS ORDERED: HEPARIN SODIUM (PORCINE) 5000 UNITS/ML 1ML VIAL ONE (15:56)
[2023-09-02] MEDS ORDERED: ceFAZolin 1GM/50ML 50 ML IV ONE (16:13)
[2023-09-02] MEDS ORDERED: IODIXANOL 320MG/ML 100ML BTL IV ONE (16:25)
[2023-09-02] MEDS: Nepro With Carb Steady 1 Liter Bottle GT SCH (18:30)
[2023-09-03] VITALS (129 sets, daily range): BP systolic 87–132; BP diastolic 35–71; PULSE 70–101; RESP 12–30; TEMP 97.3–99.9; O2SAT 94–100
[2023-09-03] MEDS: VASOPRESSIN 20 UNITS in SODIUM CHL 0.9% 99 ML IV SCH ×3 (00:28→22:42)
[2023-09-03] MEDS: DOBUTamine HCL 500 MG in D5W 5% 210 ML IV SCH ×2 (00:30→21:20)
[2023-09-03 04:22] LABS: Chloride 102 mmol/L (98-107); Sodium 138 mmol/L (136-145)
[2023-09-03 04:23] LABS: Anion Gap 14 (5-15); Carbon Dioxide 22 mmol/L (20-30)
[2023-09-03 04:24] LABS: Calcium 8.8 mg/dL (8.5-10.1)
[2023-09-03 04:28] LABS: Glucose 69 mg/dL (74-106)
[2023-09-03 04:31] LABS: Basophils # (auto) 0.2 10 ^3/uL (0-0.2); Eosinophils # (auto) 0.8 10 ^3/uL (0-0.8); Eosinophils % (auto) 4.4 % (0.0-7.0); Hematocrit 25.8 % (41.0-53.0); Hemoglobin 8.7 g/dL (13.5-17.5); Lymphocytes # (auto) 0.9 10 ^3/uL (0.4-5.4); Lymphocytes % (auto) 5.2 % (10.0-50.0); Mean Corpuscular Hemoglobin 31.8 pg (28.0-32.0); Mean Corpuscular Hgb Conc. 33.5 g/dL (32.0-36.0); Mean Corpuscular Volume 94.9 fL (80.0-100.0); Monocytes # (auto) 0.9 10 ^3/uL (0-1.3); Monocytes % (auto) 5.1 % (0.0-12.0); Neutrophils # (auto) 15.1 10 ^3/uL (1.6-8.6); Neutrophils % (auto) 84.3 % (37.0-80.0); Red Blood Cells 2.72 10^6/uL (4.5-5.90); White Blood Cell 17.9 10^3/uL (4.4-10.8)
[2023-09-03 04:32] LABS: Red Cell Distribution Width 21.6 % (11.8-14.3)
[2023-09-03 04:41] LABS: BUN/Creatinine Ratio 16.4 (10.0-20.0)
[2023-09-03 04:51] LABS: Blood Urea Nitrogen 103 mg/dL (9-23); Potassium 5.6 mmol/L (3.5-5.1)
[2023-09-03] MEDS: MIDAZOLAM DRIP 50 mg/50mL 50 ML IV SCH (05:45)
[2023-09-03] MEDS: ACCU-CHEK COMFORT CURVE STRIP VI SCH ×4 (05:54→17:45)
[2023-09-03] MEDS: InsuLIN REG 1unit/0.01ml Soln (100units/ml) SC SCH ×4 (05:54→17:45)
[2023-09-03] MEDS: AMIODARONE 450mg/250ml AE 250 ML IV SCH ×3 (06:15→21:44)
[2023-09-03] MEDS: fentaNYL Drip 2500mCg/250mlNS 250 ML IV SCH (06:16)
[2023-09-03] MEDS: PHENYLEPHRINE INJ 80 MG in SODIUM CHL 0.9% 242 ML IV SCH (09:30)
[2023-09-03 09:37] LABS: Base Excess 0.4 mmol/L (-2.0-2.0)
[2023-09-03] MEDS: PANTOPRAZOLE 40 MG/10 ML VIAL INJ IV SCH ×2 (10:08→21:37)
[2023-09-03] MEDS: CEFEPIME 1GM/ 50ML 50 ML IV SCH (10:08)
[2023-09-03] MEDS: DEXTROSE (50%) 50ML SYRG IV SCH (11:55)
[2023-09-03] MEDS: EPINEPHrine HCL INJECTION 16 MG in D5W 5% 234 ML IV SCH (12:15)
[2023-09-03] MEDS: DOPamine 3200MCG/ML 250 ML IV SCH (12:15)
[2023-09-03] MEDS: SODIUM FERR GLUC 62.5MG/5ML 125 MG in SODIUM CHL 0.9% 100 ML IV SCH (14:31)
[2023-09-03] MEDS ORDERED: EPOETIN ALFA-EPBX 4,000 UNIT/ML VIAL SC ONE (21:00)
[2023-09-04] VITALS (108 sets, daily range): BP systolic 85–126; BP diastolic 30–66; PULSE 71–105; RESP 23–37; TEMP 88.2–100; O2SAT 95–100
[2023-09-04 04:09] LABS: Basophils # (auto) 0.1 10 ^3/uL (0-0.2); Lymphocytes # (auto) 0.8 10 ^3/uL (0.4-5.4)
[2023-09-04 04:12] LABS: Basophils % (auto) 0.9 % (0.0-2.0); Eosinophils # (auto) 0.6 10 ^3/uL (0-0.8); Eosinophils % (auto) 3.6 % (0.0-7.0); Hematocrit 24.3 % (41.0-53.0); Hemoglobin 8.1 g/dL (13.5-17.5); Lymphocytes % (auto) 5.4 % (10.0-50.0); Mean Corpuscular Hemoglobin 31.9 pg (28.0-32.0); Mean Corpuscular Hgb Conc. 33.4 g/dL (32.0-36.0); Mean Corpuscular Volume 95.3 fL (80.0-100.0); Monocytes # (auto) 1.1 10 ^3/uL (0-1.3); Monocytes % (auto) 7.2 % (0.0-12.0); Neutrophils # (auto) 12.8 10 ^3/uL (1.6-8.6); Neutrophils % (auto) 82.9 % (37.0-80.0); Red Blood Cells 2.55 10^6/uL (4.5-5.90); White Blood Cell 15.4 10^3/uL (4.4-10.8)
[2023-09-04 04:13] LABS: Anion Gap 12 (5-15); Calcium 8.3 mg/dL (8.7-10.4); Carbon Dioxide 24 mmol/L (20-30); Chloride 102 mmol/L (98-107); Potassium 4.7 mmol/L (3.5-5.1); Red Cell Distribution Width 21.1 % (11.8-14.3); Sodium 138 mmol/L (136-145)
[2023-09-04 04:19] LABS: BUN/Creatinine Ratio 14.9 (10.0-20.0); Glucose 78 mg/dL (74-106)
[2023-09-04 04:29] LABS: Blood Urea Nitrogen 90 mg/dL (9-23)
[2023-09-04] MEDS: MIDAZOLAM DRIP 50 mg/50mL 50 ML IV SCH (05:45)
[2023-09-04] MEDS: InsuLIN REG 1unit/0.01ml Soln (100units/ml) SC SCH ×4 (06:00→17:45)
[2023-09-04] MEDS: fentaNYL Drip 2500mCg/250mlNS 250 ML IV SCH (06:02)
[2023-09-04] MEDS: NOREPINEPHRINE BITARTRATE 32 MG in SODIUM CHL 0.9% 218 ML IV SCH ×2 (06:04→12:24)
[2023-09-04] MEDS: ACCU-CHEK COMFORT CURVE STRIP VI SCH ×4 (06:13→17:45)
[2023-09-04 07:25] LABS: Base Excess -2.3 mmol/L (-2.0-2.0)
[2023-09-04] MEDS: PHENYLEPHRINE INJ 80 MG in SODIUM CHL 0.9% 242 ML IV SCH (09:30)
[2023-09-04] MEDS ORDERED: HEPARIN 1,000 UNITS/ml 1ML VIAL IV ONE (09:45)
[2023-09-04] MEDS: VASOPRESSIN 20 UNITS in SODIUM CHL 0.9% 99 ML IV SCH ×2 (09:49→20:56)
[2023-09-04] MEDS: EPINEPHrine HCL INJECTION 16 MG in D5W 5% 234 ML IV SCH (12:15)
[2023-09-04] MEDS: DOPamine 3200MCG/ML 250 ML IV SCH (12:15)
[2023-09-04] MEDS: SODIUM FERR GLUC 62.5MG/5ML 125 MG in SODIUM CHL 0.9% 100 ML IV SCH (12:23)
[2023-09-04] MEDS: CEFEPIME 1GM/ 50ML 50 ML IV SCH (13:58)
[2023-09-04] MEDS: AMIODARONE 450mg/250ml AE 250 ML IV SCH (14:07)
[2023-09-04] MEDS: PANTOPRAZOLE 40 MG/10 ML VIAL INJ IV SCH ×2 (14:19→21:39)
[2023-09-04] MEDS: DOBUTamine HCL 500 MG in D5W 5% 210 ML IV SCH (18:00)
[2023-09-05] VITALS (115 sets, daily range): BP systolic 91–135; BP diastolic 31–65; PULSE 66–103; RESP 10–26; TEMP 95.9–100.8; O2SAT 98–100
[2023-09-05] MEDS: DEXTROSE (50%) 50ML SYRG IV SCH ×2 (01:00→06:18)
[2023-09-05 04:22] LABS: Basophils # (auto) 0.2 10 ^3/uL (0-0.2); Basophils % (auto) 1.3 % (0.0-2.0); Eosinophils # (auto) 0.6 10 ^3/uL (0-0.8); Hemoglobin 7.7 g/dL (13.5-17.5); Lymphocytes # (auto) 0.6 10 ^3/uL (0.4-5.4); Lymphocytes % (auto) 3.8 % (10.0-50.0)
[2023-09-05 04:29] LABS: Eosinophils % (auto) 3.9 % (0.0-7.0); Hematocrit 23.1 % (41.0-53.0); Mean Corpuscular Hemoglobin 31.7 pg (28.0-32.0); Mean Corpuscular Hgb Conc. 33.3 g/dL (32.0-36.0); Mean Corpuscular Volume 95.1 fL (80.0-100.0); Monocytes # (auto) 1.2 10 ^3/uL (0-1.3); Monocytes % (auto) 7.4 % (0.0-12.0); Neutrophils % (auto) 83.6 % (37.0-80.0); Red Blood Cells 2.43 10^6/uL (4.5-5.90); White Blood Cell 15.6 10^3/uL (4.4-10.8)
[2023-09-05 04:31] LABS: Red Cell Distribution Width 20.7 % (11.8-14.3)
[2023-09-05 04:36] LABS: Chloride 102 mmol/L (98-107); Potassium 4.3 mmol/L (3.5-5.1); Sodium 141 mmol/L (136-145)
[2023-09-05] MEDS: MIDAZOLAM DRIP 50 mg/50mL 50 ML IV SCH (04:37)
[2023-09-05 04:38] LABS: Calcium 8.9 mg/dL (8.5-10.1)
[2023-09-05 04:42] LABS: Glucose 63 mg/dL (74-106)
[2023-09-05 04:43] LABS: BUN/Creatinine Ratio 13.9 (10.0-20.0)
[2023-09-05 04:54] LABS: Anion Gap 15 (5-15); Blood Urea Nitrogen 74 mg/dL (9-23); Carbon Dioxide 24 mmol/L (20-30)
[2023-09-05] MEDS: InsuLIN REG 1unit/0.01ml Soln (100units/ml) SC SCH ×4 (06:00→18:00)
[2023-09-05] MEDS: ACCU-CHEK COMFORT CURVE STRIP VI SCH ×4 (06:17→19:48)
[2023-09-05] MEDS: AMIODARONE 450mg/250ml AE 250 ML IV SCH ×2 (07:45→16:51)
[2023-09-05 07:48] LABS: Base Excess 1.8 mmol/L (-2.0-2.0)
[2023-09-05] MEDS: VASOPRESSIN 20 UNITS in SODIUM CHL 0.9% 99 ML IV SCH ×2 (08:03→19:10)
[2023-09-05] MEDS ORDERED: SODIUM CHL 0.9% 1000 ML BAG XX ONE (08:45)
[2023-09-05] MEDS: PHENYLEPHRINE INJ 80 MG in SODIUM CHL 0.9% 242 ML IV SCH (09:30)
[2023-09-05] MEDS: EPINEPHrine HCL INJECTION 16 MG in D5W 5% 234 ML IV SCH (12:15)
[2023-09-05] MEDS: DOPamine 3200MCG/ML 250 ML IV SCH (12:15)
[2023-09-05] MEDS: CEFEPIME 1GM/ 50ML 50 ML IV SCH (12:19)
[2023-09-05] MEDS: PANTOPRAZOLE 40 MG/10 ML VIAL INJ IV SCH ×2 (12:20→22:17)
[2023-09-05] MEDS: DOBUTamine HCL 500 MG in D5W 5% 210 ML IV SCH (15:00)
[2023-09-05] MEDS: SODIUM FERR GLUC 62.5MG/5ML 125 MG in SODIUM CHL 0.9% 100 ML IV SCH (16:53)
[2023-09-05] MEDS: NOREPINEPHRINE BITARTRATE 32 MG in SODIUM CHL 0.9% 218 ML IV SCH (20:03)
[2023-09-05] MEDS: fentaNYL Drip 2500mCg/250mlNS 250 ML IV SCH (20:10)
[2023-09-06] VITALS (100 sets, daily range): BP systolic 91–128; BP diastolic 36–60; PULSE 77–98; RESP 15–26; TEMP 98.1–100.4; O2SAT 95–100
[2023-09-06] MEDS: MIDAZOLAM DRIP 50 mg/50mL 50 ML IV SCH (01:14)
[2023-09-06 04:14] LABS: Eosinophils # (auto) 0.6 10 ^3/uL (0-0.8); Hemoglobin 8.1 g/dL (13.5-17.5)
[2023-09-06 04:18] LABS: Basophils # (auto) 0.2 10 ^3/uL (0-0.2); Basophils % (auto) 1.1 % (0.0-2.0); Hematocrit 24.8 % (41.0-53.0); Lymphocytes # (auto) 0.8 10 ^3/uL (0.4-5.4); Lymphocytes % (auto) 5.3 % (10.0-50.0); Mean Corpuscular Hemoglobin 31.2 pg (28.0-32.0); Mean Corpuscular Hgb Conc. 32.7 g/dL (32.0-36.0); Mean Corpuscular Volume 95.4 fL (80.0-100.0); Monocytes # (auto) 1.1 10 ^3/uL (0-1.3); Monocytes % (auto) 7.3 % (0.0-12.0); Neutrophils # (auto) 12.2 10 ^3/uL (1.6-8.6); Neutrophils % (auto) 82.3 % (37.0-80.0); White Blood Cell 14.8 10^3/uL (4.4-10.8)
[2023-09-06 04:38] LABS: Anion Gap 12 (5-15); Calcium 9.1 mg/dL (8.7-10.4); Carbon Dioxide 28 mmol/L (20-30); Chloride 101 mmol/L (98-107); Potassium 4.3 mmol/L (3.5-5.1); Sodium 141 mmol/L (136-145)
[2023-09-06 04:43] LABS: Red Cell Distribution Width 21.3 % (11.8-14.3)
[2023-09-06 04:45] LABS: BUN/Creatinine Ratio 12.1 (10.0-20.0); Glucose 80 mg/dL (74-106)
[2023-09-06 04:59] LABS: Blood Urea Nitrogen 50 mg/dL (9-23)
[2023-09-06] MEDS: VASOPRESSIN 20 UNITS in SODIUM CHL 0.9% 99 ML IV SCH ×2 (05:12→17:24)
[2023-09-06] MEDS: ACCU-CHEK COMFORT CURVE STRIP VI SCH ×4 (05:57→18:15)
[2023-09-06] MEDS: InsuLIN REG 1unit/0.01ml Soln (100units/ml) SC SCH ×4 (05:57→18:00)
[2023-09-06 07:04] LABS: Base Excess 2.1 mmol/L (-2.0-2.0)
[2023-09-06] MEDS: AMIODARONE 450mg/250ml AE 250 ML IV SCH (07:41)
[2023-09-06] MEDS: PANTOPRAZOLE 40 MG/10 ML VIAL INJ IV SCH ×2 (09:14→22:00)
[2023-09-06] MEDS: CEFEPIME 1GM/ 50ML 50 ML IV SCH (09:14)
[2023-09-06] MEDS: PHENYLEPHRINE INJ 80 MG in SODIUM CHL 0.9% 242 ML IV SCH (09:30)
[2023-09-06] MEDS: DOBUTamine HCL 500 MG in D5W 5% 210 ML IV SCH (11:50)
[2023-09-06] MEDS: DOPamine 3200MCG/ML 250 ML IV SCH (12:15)
[2023-09-06] MEDS: EPINEPHrine HCL INJECTION 16 MG in D5W 5% 234 ML IV SCH (12:15)
[2023-09-06] MEDS: NOREPINEPHRINE BITARTRATE 32 MG in SODIUM CHL 0.9% 218 ML IV SCH (15:00)
[2023-09-07] VITALS (103 sets, daily range): BP systolic 91–138; BP diastolic 36–66; PULSE 80–98; RESP 23–34; TEMP 76.3–100; O2SAT 98–100
[2023-09-07] MEDS: ACCU-CHEK COMFORT CURVE STRIP VI SCH ×5 (00:03→23:32)
[2023-09-07 04:06] LABS: Basophils # (auto) 0.2 10 ^3/uL (0-0.2); Eosinophils # (auto) 0.6 10 ^3/uL (0-0.8); Mean Corpuscular Volume 96.3 fL (80.0-100.0)
[2023-09-07 04:09] LABS: Basophils % (auto) 1.3 % (0.0-2.0); Eosinophils % (auto) 3.8 % (0.0-7.0); Hematocrit 23.1 % (41.0-53.0); Hemoglobin 7.6 g/dL (13.5-17.5); Lymphocytes # (auto) 0.8 10 ^3/uL (0.4-5.4); Lymphocytes % (auto) 4.8 % (10.0-50.0); Mean Corpuscular Hemoglobin 31.5 pg (28.0-32.0); Mean Corpuscular Hgb Conc. 32.7 g/dL (32.0-36.0); Monocytes % (auto) 5.9 % (0.0-12.0); Neutrophils # (auto) 13.8 10 ^3/uL (1.6-8.6); Neutrophils % (auto) 84.2 % (37.0-80.0); White Blood Cell 16.4 10^3/uL (4.4-10.8)
[2023-09-07 04:18] LABS: Chloride 101 mmol/L (98-107); Potassium 4.9 mmol/L (3.5-5.1); Sodium 140 mmol/L (136-145)
[2023-09-07 04:19] LABS: Anion Gap 13 (5-15); Carbon Dioxide 26 mmol/L (20-30)
[2023-09-07 04:23] LABS: Red Cell Distribution Width 21.9 % (11.8-14.3)
[2023-09-07 04:24] LABS: BUN/Creatinine Ratio 12.9 (10.0-20.0); Glucose 91 mg/dL (74-106)
[2023-09-07] MEDS: VASOPRESSIN 20 UNITS in SODIUM CHL 0.9% 99 ML IV SCH ×2 (04:31→15:38)
[2023-09-07 04:52] LABS: Blood Urea Nitrogen 67 mg/dL (9-23)
[2023-09-07] MEDS: MIDAZOLAM DRIP 50 mg/50mL 50 ML IV SCH (05:45)
[2023-09-07] MEDS: InsuLIN REG 1unit/0.01ml Soln (100units/ml) SC SCH ×5 (06:00→23:32)
[2023-09-07] MEDS: fentaNYL Drip 2500mCg/250mlNS 250 ML IV SCH ×2 (06:30→22:43)
[2023-09-07] MEDS: DOBUTamine HCL 500 MG in D5W 5% 210 ML IV SCH (08:40)
[2023-09-07 08:53] LABS: Base Excess 1.9 mmol/L (-2.0-2.0)
[2023-09-07] MEDS: cefTRIAXone 1GM/50ML D5W 50 ML IV SCH (09:27)
[2023-09-07] MEDS: PHENYLEPHRINE INJ 80 MG in SODIUM CHL 0.9% 242 ML IV SCH (09:30)
[2023-09-07] MEDS: PANTOPRAZOLE 40 MG/10 ML VIAL INJ IV SCH ×2 (09:32→21:40)
[2023-09-07] MEDS: AZITHROMYCIN 500MG/ 250ML 250 ML IV SCH (09:33)
[2023-09-07] MEDS: EPINEPHrine HCL INJECTION 16 MG in D5W 5% 234 ML IV SCH (12:15)
[2023-09-07] MEDS: DOPamine 3200MCG/ML 250 ML IV SCH (12:15)
[2023-09-07] MEDS: NOREPINEPHRINE BITARTRATE 32 MG in SODIUM CHL 0.9% 218 ML IV SCH (15:00)
[2023-09-07] MEDS: AMIODARONE 450mg/250ml AE 250 ML IV SCH ×2 (19:45)
[2023-09-08] VITALS (105 sets, daily range): BP systolic 91–132; BP diastolic 33–63; PULSE 81–107; RESP 16–36; TEMP 97.3–99; O2SAT 99–100
[2023-09-08] MEDS: VASOPRESSIN 20 UNITS in SODIUM CHL 0.9% 99 ML IV SCH ×2 (02:45→13:52)
[2023-09-08 04:20] LABS: Eosinophils # (auto) 0.8 10 ^3/uL (0-0.8); Lymphocytes # (auto) 0.8 10 ^3/uL (0.4-5.4); Mean Corpuscular Volume 97.2 fL (80.0-100.0); White Blood Cell 16.4 10^3/uL (4.4-10.8)
[2023-09-08 04:25] LABS: Basophils # (auto) 0.1 10 ^3/uL (0-0.2); Basophils % (auto) 0.8 % (0.0-2.0); Eosinophils % (auto) 4.7 % (0.0-7.0); Hematocrit 22.8 % (41.0-53.0); Hemoglobin 7.5 g/dL (13.5-17.5); Lymphocytes % (auto) 4.9 % (10.0-50.0); Mean Corpuscular Hgb Conc. 32.9 g/dL (32.0-36.0); Monocytes % (auto) 6.3 % (0.0-12.0); Neutrophils # (auto) 13.6 10 ^3/uL (1.6-8.6); Neutrophils % (auto) 83.3 % (37.0-80.0); Red Blood Cells 2.35 10^6/uL (4.5-5.90)
[2023-09-08 04:29] LABS: Chloride 100 mmol/L (98-107); Sodium 136 mmol/L (136-145)
[2023-09-08 04:30] LABS: Anion Gap 11 (5-15); Calcium 9.2 mg/dL (8.5-10.1); Carbon Dioxide 25 mmol/L (20-30)
[2023-09-08 04:35] LABS: BUN/Creatinine Ratio 13.5 (10.0-20.0); Glucose 85 mg/dL (74-106)
[2023-09-08 04:36] LABS: % Iron Saturation 14.2 % (20-55)
[2023-09-08 04:39] LABS: Red Cell Distribution Width 22.2 % (11.8-14.3)
[2023-09-08 04:46] LABS: Blood Urea Nitrogen 81 mg/dL (9-23); Potassium 5.7 mmol/L (3.5-5.1)
[2023-09-08] MEDS: DOBUTamine HCL 500 MG in D5W 5% 210 ML IV SCH (05:30)
[2023-09-08] MEDS: MIDAZOLAM DRIP 50 mg/50mL 50 ML IV SCH (05:45)
[2023-09-08] MEDS: InsuLIN REG 1unit/0.01ml Soln (100units/ml) SC SCH ×3 (06:00→17:17)
[2023-09-08] MEDS: ACCU-CHEK COMFORT CURVE STRIP VI SCH ×3 (06:13→17:14)
[2023-09-08] MEDS ORDERED: SODIUM CHL 0.9% 1000 ML BAG XX ONE ×2 (07:00)
[2023-09-08 07:33] LABS: Base Excess -1.4 mmol/L (-2.0-2.0)
[2023-09-08] MEDS: PHENYLEPHRINE INJ 80 MG in SODIUM CHL 0.9% 242 ML IV SCH (09:30)
[2023-09-08] MEDS: AMIODARONE 450mg/250ml AE 250 ML IV SCH ×2 (10:45→18:18)
[2023-09-08] MEDS: PANTOPRAZOLE 40 MG/10 ML VIAL INJ IV SCH ×2 (12:13→21:44)
[2023-09-08] MEDS: cefTRIAXone 1GM/50ML D5W 50 ML IV SCH (12:13)
[2023-09-08] MEDS: EPINEPHrine HCL INJECTION 16 MG in D5W 5% 234 ML IV SCH (12:15)
[2023-09-08] MEDS: DOPamine 3200MCG/ML 250 ML IV SCH (12:15)
[2023-09-08] MEDS: AZITHROMYCIN 500MG/ 250ML 250 ML IV SCH (12:59)
[2023-09-08] MEDS: SODIUM FERR GLUC 62.5MG/5ML 125 MG in SODIUM CHL 0.9% 100 ML IV SCH (13:58)
[2023-09-08] MEDS: NOREPINEPHRINE BITARTRATE 32 MG in SODIUM CHL 0.9% 218 ML IV SCH (15:00)
[2023-09-08 16:14] LABS: Chloride 102 mmol/L (98-107); Potassium 4.1 mmol/L (3.5-5.1); Sodium 141 mmol/L (136-145)
[2023-09-08 16:15] LABS: Anion Gap 11 (5-15); Calcium 9.2 mg/dL (8.5-10.1); Carbon Dioxide 28 mmol/L (20-30)
[2023-09-08 16:21] LABS: BUN/Creatinine Ratio 12.4 (10.0-20.0); Glucose 118 mg/dL (74-106)
[2023-09-08 16:25] LABS: Blood Urea Nitrogen 49 mg/dL (9-23)
[2023-09-08] MEDS ORDERED: EPOETIN ALFA-EPBX 10,000 UNIT/1ML VIAL SC ONE (21:00)
[2023-09-09] VITALS (107 sets, daily range): BP systolic 77–137; BP diastolic 18–65; PULSE 78–98; RESP 18–26; TEMP 97.2–99.7; O2SAT 88–100
[2023-09-09] MEDS: VASOPRESSIN 20 UNITS in SODIUM CHL 0.9% 99 ML IV SCH ×3 (00:59→22:56)
[2023-09-09] MEDS: DOBUTamine HCL 500 MG in D5W 5% 210 ML IV SCH ×2 (01:37→22:56)
[2023-09-09 04:52] LABS: Eosinophils # (auto) 0.9 10 ^3/uL (0-0.8); Hemoglobin 7.7 g/dL (13.5-17.5); White Blood Cell 14.7 10^3/uL (4.4-10.8)
[2023-09-09 04:55] LABS: Basophils # (auto) 0.2 10 ^3/uL (0-0.2); Basophils % (auto) 1.1 % (0.0-2.0); Eosinophils % (auto) 6.3 % (0.0-7.0); Hematocrit 23.6 % (41.0-53.0); Lymphocytes # (auto) 0.8 10 ^3/uL (0.4-5.4); Lymphocytes % (auto) 5.6 % (10.0-50.0); Mean Corpuscular Hemoglobin 32.2 pg (28.0-32.0); Mean Corpuscular Hgb Conc. 32.8 g/dL (32.0-36.0); Mean Corpuscular Volume 98.2 fL (80.0-100.0); Monocytes # (auto) 0.9 10 ^3/uL (0-1.3); Monocytes % (auto) 5.9 % (0.0-12.0); Neutrophils # (auto) 11.9 10 ^3/uL (1.6-8.6); Neutrophils % (auto) 81.1 % (37.0-80.0); Nucleated Red Blood Cells % 0.1 %; Red Cell Distribution Width 23.6 % (11.8-14.3)
[2023-09-09 05:01] LABS: Anion Gap 13 (5-15); Carbon Dioxide 27 mmol/L (20-30); Chloride 101 mmol/L (98-107); Potassium 4.7 mmol/L (3.5-5.1); Sodium 141 mmol/L (136-145)
[2023-09-09 05:02] LABS: Calcium 9.3 mg/dL (8.5-10.1)
[2023-09-09 05:05] LABS: INR 1.3 (0.9-1.15); Partial Thromboplastin Time 44.9 SEC (24.5-34.5); Prothrombin Time 13.4 sec (9.3-11.8)
[2023-09-09 05:07] LABS: BUN/Creatinine Ratio 12.8 (10.0-20.0); Blood Urea Nitrogen 58 mg/dL (9-23); Glucose 77 mg/dL (74-106)
[2023-09-09] MEDS: MIDAZOLAM DRIP 50 mg/50mL 50 ML IV SCH (05:45)
[2023-09-09] MEDS: ACCU-CHEK COMFORT CURVE STRIP VI SCH ×4 (05:57→17:47)
[2023-09-09] MEDS: InsuLIN REG 1unit/0.01ml Soln (100units/ml) SC SCH ×4 (05:58→17:47)
[2023-09-09] MEDS: fentaNYL Drip 2500mCg/250mlNS 250 ML IV SCH (06:30)
[2023-09-09] MEDS ORDERED: fentaNYL CITRATE 100 MCG/2 ML VL ONE (07:30)
[2023-09-09 07:44] LABS: Base Excess 2.6 mmol/L (-2.0-2.0)
[2023-09-09] MEDS ORDERED: BUPIVACAINE 0.5% P/F INJ 10 ML VIAL ONE (08:07)
[2023-09-09] MEDS ORDERED: LIDOCAINE W/ EPINEPHRINE 2% INJ 20ML VIAL ONE (08:07)
[2023-09-09] MEDS: DEXTROSE (50%) 50ML SYRG IV SCH ×2 (08:25→17:49)
[2023-09-09] MEDS: AMIODARONE 450mg/250ml AE 250 ML IV SCH ×2 (08:26→21:48)
[2023-09-09] MEDS ORDERED: ROCURONIUM 10MG/ML 10ML VIAL IV ONE (08:38)
[2023-09-09] MEDS: PHENYLEPHRINE INJ 80 MG in SODIUM CHL 0.9% 242 ML IV SCH (09:30)
[2023-09-09] MEDS: cefTRIAXone 1GM/50ML D5W 50 ML IV SCH (10:57)
[2023-09-09] MEDS: PANTOPRAZOLE 40 MG/10 ML VIAL INJ IV SCH ×2 (11:04→21:48)
[2023-09-09] MEDS: AZITHROMYCIN 500MG/ 250ML 250 ML IV SCH (11:45)
[2023-09-09] MEDS: EPINEPHrine HCL INJECTION 16 MG in D5W 5% 234 ML IV SCH (12:15)
[2023-09-09] MEDS: DOPamine 3200MCG/ML 250 ML IV SCH (12:15)
[2023-09-09] MEDS: Nepro With Carb Steady 1 Liter Bottle GT SCH (12:50)
[2023-09-09] MEDS: SODIUM FERR GLUC 62.5MG/5ML 125 MG in SODIUM CHL 0.9% 100 ML IV SCH (13:03)
[2023-09-09] MEDS: NOREPINEPHRINE BITARTRATE 32 MG in SODIUM CHL 0.9% 218 ML IV SCH (18:43)
[2023-09-10] VITALS (100 sets, daily range): BP systolic 92–132; BP diastolic 34–74; PULSE 85–137; RESP 24–30; TEMP 97.3–100.2; O2SAT 96–100
[2023-09-10] MEDS: ACCU-CHEK COMFORT CURVE STRIP VI SCH ×4 (00:14→18:03)
[2023-09-10 04:13] LABS: Basophils # (auto) 0.2 10 ^3/uL (0-0.2); Eosinophils # (auto) 1.5 10 ^3/uL (0-0.8); Eosinophils % (auto) 8.2 % (0.0-7.0); Hematocrit 24.3 % (41.0-53.0); Hemoglobin 7.7 g/dL (13.5-17.5); Lymphocytes # (auto) 0.9 10 ^3/uL (0.4-5.4); Lymphocytes % (auto) 4.6 % (10.0-50.0); Mean Corpuscular Hgb Conc. 31.7 g/dL (32.0-36.0); Mean Corpuscular Volume 97.9 fL (80.0-100.0); Monocytes # (auto) 0.9 10 ^3/uL (0-1.3); Monocytes % (auto) 4.7 % (0.0-12.0); Neutrophils # (auto) 15.3 10 ^3/uL (1.6-8.6); Neutrophils % (auto) 81.5 % (37.0-80.0); Nucleated Red Blood Cells % 0.1 %; Red Blood Cells 2.48 10^6/uL (4.5-5.90); White Blood Cell 18.8 10^3/uL (4.4-10.8)
[2023-09-10 04:14] LABS: Red Cell Distribution Width 23.2 % (11.8-14.3)
[2023-09-10 04:35] LABS: Alanine Aminotransferase 25 U/L (7-40); Albumin 3.3 g/dL (3.2-4.8); Alkaline Phosphatase 337 U/L (46-116); Anion Gap 12 (5-15); Aspartate Aminotransferase 89 U/L (13-40); BUN/Creatinine Ratio 13.1 (10.0-20.0); Calcium 8.9 mg/dL (8.7-10.4); Carbon Dioxide 25 mmol/L (20-30); Chloride 100 mmol/L (98-107); Glucose 88 mg/dL (74-106); Sodium 137 mmol/L (136-145)
[2023-09-10 04:36] LABS: Bilirubin, Total 6.5 mg/dL (0.2-1.0); Total Protein 6.8 g/dL (5.7-8.2)
[2023-09-10 04:48] LABS: Blood Urea Nitrogen 69 mg/dL (9-23)
[2023-09-10] MEDS: MIDAZOLAM DRIP 50 mg/50mL 50 ML IV SCH (05:45)
[2023-09-10] MEDS: InsuLIN REG 1unit/0.01ml Soln (100units/ml) SC SCH ×4 (05:48→18:00)
[2023-09-10] MEDS: fentaNYL Drip 2500mCg/250mlNS 250 ML IV SCH (06:30)
[2023-09-10] MEDS ORDERED: SODIUM CHL 0.9% 1000 ML BAG XX ONE (07:00)
[2023-09-10] MEDS: PHENYLEPHRINE INJ 80 MG in SODIUM CHL 0.9% 242 ML IV SCH (09:30)
[2023-09-10] MEDS: PANTOPRAZOLE 40 MG/10 ML VIAL INJ IV SCH (10:00)
[2023-09-10] MEDS: AZITHROMYCIN 500MG/ 250ML 250 ML IV SCH (10:00)
[2023-09-10] MEDS: cefTRIAXone 1GM/50ML D5W 50 ML IV SCH (10:00)
[2023-09-10] MEDS: VASOPRESSIN 20 UNITS in SODIUM CHL 0.9% 99 ML IV SCH ×2 (10:20→19:49)
[2023-09-10] MEDS: SODIUM FERR GLUC 62.5MG/5ML 125 MG in SODIUM CHL 0.9% 100 ML IV SCH (12:00)
[2023-09-10] MEDS: EPINEPHrine HCL INJECTION 16 MG in D5W 5% 234 ML IV SCH (12:15)
[2023-09-10] MEDS: DOPamine 3200MCG/ML 250 ML IV SCH (12:15)
[2023-09-10] MEDS: AMIODARONE 450mg/250ml AE 250 ML IV SCH (13:16)
[2023-09-10] MEDS: NOREPINEPHRINE BITARTRATE 32 MG in SODIUM CHL 0.9% 218 ML IV SCH (15:00)
[2023-09-10] MEDS: DOBUTamine HCL 500 MG in D5W 5% 210 ML IV SCH (19:48)
[2023-09-10] MEDS ORDERED: EPOETIN ALFA-EPBX 10,000 UNIT/1ML VIAL SC ONE (21:00)
[2023-09-10 21:41] LABS: Base Excess 3.7 mmol/L (-2.0-2.0)
== END 2023-09-10 21:10 | disposition short-term general hospital (02) | DRG 4 ==
LOC: ER 04:33 → EDBD 04:33 → TELE 08:31 → ICU WEST 08:37
PROVIDERS: ADMIT Internal Medicine; ATTEND Internal Medicine
PROC: 5A1955Z Respiratory Ventilation, Greater than 96 Consecutive Hours (ICD-10-PCS; principal; 2023-08-18)
PROC: 0BH17EZ Insertion of Endotracheal Airway into Trachea, Via Natural or Artificial Opening (ICD-10-PCS; 2023-08-18)
PROC: 30233N1 Transfusion of Nonautologous Red Blood Cells into Peripheral Vein, Percutaneous Approach (ICD-10-PCS; 2023-08-18)
PROC: 06HM33Z Insertion of Infusion Device into Right Femoral Vein, Percutaneous Approach (ICD-10-PCS; 2023-08-18)
PROC: 5A12012 Performance of Cardiac Output, Single, Manual (ICD-10-PCS; 2023-08-18)
PROC: 30233K1 Transfusion of Nonautologous Frozen Plasma into Peripheral Vein, Percutaneous Approach (ICD-10-PCS; 2023-08-18)
PROC: 30233R1 Transfusion of Nonautologous Platelets into Peripheral Vein, Percutaneous Approach (ICD-10-PCS; 2023-08-18)
PROC: 5A1D70Z Performance of Urinary Filtration, Intermittent, Less than 6 Hours Per Day (ICD-10-PCS; 2023-08-19)
PROC: 4A143B0 Monitoring of Venous Pressure, Central, Percutaneous Approach (ICD-10-PCS; 2023-08-20)
PROC: 05HN33Z Insertion of Infusion Device into Left Internal Jugular Vein, Percutaneous Approach (ICD-10-PCS; 2023-08-20)
PROC: B544ZZA Ultrasonography of Left Jugular Veins, Guidance (ICD-10-PCS; 2023-08-20)
PROC: 03HY32Z Insertion of Monitoring Device into Upper Artery, Percutaneous Approach (ICD-10-PCS; 2023-08-20)
PROC: 5A1D70Z Performance of Urinary Filtration, Intermittent, Less than 6 Hours Per Day (ICD-10-PCS; 2023-08-22)
PROC: 0W993ZZ Drainage of Right Pleural Cavity, Percutaneous Approach (ICD-10-PCS; 2023-08-24)
PROC: 05H933Z Insertion of Infusion Device into Right Brachial Vein, Percutaneous Approach (ICD-10-PCS; 2023-08-24)
PROC: B54MZZA Ultrasonography of Right Upper Extremity Veins, Guidance (ICD-10-PCS; 2023-08-24)
PROC: 5A1D70Z Performance of Urinary Filtration, Intermittent, Less than 6 Hours Per Day (ICD-10-PCS; 2023-08-24)
PROC: 0W9B3ZZ Drainage of Left Pleural Cavity, Percutaneous Approach (ICD-10-PCS; 2023-08-25)
PROC: 5A1D70Z Performance of Urinary Filtration, Intermittent, Less than 6 Hours Per Day (ICD-10-PCS; 2023-08-25)
PROC: 5A1D70Z Performance of Urinary Filtration, Intermittent, Less than 6 Hours Per Day (ICD-10-PCS; 2023-08-26)
PROC: 5A1D70Z Performance of Urinary Filtration, Intermittent, Less than 6 Hours Per Day (ICD-10-PCS; 2023-08-27)
PROC: 5A1D70Z Performance of Urinary Filtration, Intermittent, Less than 6 Hours Per Day (ICD-10-PCS; 2023-08-28)
PROC: 5A1D70Z Performance of Urinary Filtration, Intermittent, Less than 6 Hours Per Day (ICD-10-PCS; 2023-08-30)
PROC: 5A1D70Z Performance of Urinary Filtration, Intermittent, Less than 6 Hours Per Day (ICD-10-PCS; 2023-08-31)
PROC: 0JH63XZ Insertion of Tunneled Vascular Access Device into Chest Subcutaneous Tissue and Fascia, Percutaneous Approach (ICD-10-PCS; 2023-09-02)
PROC: B548ZZA Ultrasonography of Superior Vena Cava, Guidance (ICD-10-PCS; 2023-09-02)
PROC: B518YZA Fluoroscopy of Superior Vena Cava using Other Contrast, Guidance (ICD-10-PCS; 2023-09-02)
PROC: 02HV33Z Insertion of Infusion Device into Superior Vena Cava, Percutaneous Approach (ICD-10-PCS; 2023-09-02)
PROC: 5A1D70Z Performance of Urinary Filtration, Intermittent, Less than 6 Hours Per Day (ICD-10-PCS; 2023-09-03)
PROC: 5A1D70Z Performance of Urinary Filtration, Intermittent, Less than 6 Hours Per Day (ICD-10-PCS; 2023-09-04)
PROC: 5A1D70Z Performance of Urinary Filtration, Intermittent, Less than 6 Hours Per Day (ICD-10-PCS; 2023-09-05)
PROC: 5A1D70Z Performance of Urinary Filtration, Intermittent, Less than 6 Hours Per Day (ICD-10-PCS; 2023-09-08)
PROC: 0B110F4 Bypass Trachea to Cutaneous with Tracheostomy Device, Open Approach (ICD-10-PCS; 2023-09-09)
PROC: 5A1D70Z Performance of Urinary Filtration, Intermittent, Less than 6 Hours Per Day (ICD-10-PCS; 2023-09-10)
DX: A41.9 Sepsis, unspecified organism (principal); G92.8 Other toxic encephalopathy; I46.9 Cardiac arrest, cause unspecified; J96.01 Acute respiratory failure with hypoxia; N18.6 End stage renal disease; R65.21 Severe sepsis with septic shock; J18.9 Pneumonia, unspecified organism; I21.4 Non-ST elevation (NSTEMI) myocardial infarction; D68.9 Coagulation defect, unspecified; I13.2 Hypertensive heart and chronic kidney disease with heart failure and with stage 5 chronic kidney disease, or end stage renal disease; G93.1 Anoxic brain damage, not elsewhere classified; N39.0 Urinary tract infection, site not specified; I50.32 Chronic diastolic (congestive) heart failure; E87.1 Hypo-osmolality and hyponatremia; J98.11 Atelectasis; Z99.11 Dependence on respirator [ventilator] status; D62 Acute posthemorrhagic anemia; E11.52 Type 2 diabetes mellitus with diabetic peripheral angiopathy with gangrene; D69.6 Thrombocytopenia, unspecified; E11.22 Type 2 diabetes mellitus with diabetic chronic kidney disease; E11.649 Type 2 diabetes mellitus with hypoglycemia without coma; I48.91 Unspecified atrial fibrillation; K74.60 Unspecified cirrhosis of liver; E86.1 Hypovolemia; G25.3 Myoclonus; E87.6 Hypokalemia; I35.0 Nonrheumatic aortic (valve) stenosis; H57.02 Anisocoria; Z20.822 Contact with and (suspected) exposure to COVID-19; I25.10 Atherosclerotic heart disease of native coronary artery without angina pectoris; I27.20 Pulmonary hypertension, unspecified; Z91.158 Patient's noncompliance with renal dialysis for other reason; Z91.199 Patient's noncompliance with other medical treatment and regimen due to unspecified reason; Z99.2 Dependence on renal dialysis; Z88.5 Allergy status to narcotic agent
CPT/HCPCS: 31500; 36415; 36556; 36558; 36600; 70450; 71045; 74018; 74176; 76604; 76856; 77001; 80048; 80053; 80074; 80076; 80178; 80202; 80307; 80320; 81001; 82010; 82140; 82270; 82271; 82728; 82805; 82947; 82962; 83036; 83540; 83550; 83605; 83690; 83735; 83880; 83930; 83986; 84100; 84443; 84478; 84484; 85007; 85025; 85027; 85610; 85652; 85730; 86850; 86900; 86901; 86920; 87040; 87070; 87077; 87081; 87205; 87340; 87426; 89051; 90935; 92950; 93005; 93306; 93971; 94002; 94003; 95819; 96365; 96368; 99152; 99291; C1894; C9113; G0378; J0171; J0690; J0696; J1265; J1450; J1642; J2001; J2250; J2543; J3430; J3480; J3490; J7060; J7131; P9047; Q9967